=== PATIENT | male | born 1960 | race Caucasian/White ===

== ENCOUNTER 2017-05-17 18:02 | Observation (INO) | payer BC, SELFPAY | END 2017-05-18 17:35 | disposition home or self-care (01) | PROVIDERS: Admitting Provider Emergency Medicine; Emergency Provider Emergency Medicine; Family Provider Emergency Medicine; Visit Provider Emergency Medicine | DX: R07.9 Chest pain, unspecified (principal); I10 Essential (primary) hypertension | CPT/HCPCS: 36415; 71020; 78452; 80048; 80053; 82550; 82553; 83690; 83880; 84484; 85025; 93005; 93017; 93041; 93306; 93976; 99284; A9502; G0378; J2405 ==

== ENCOUNTER → 2017-08-06 14:10 | Outpatient (CLI) | payer BC, SELFPAY ==
[2017-08-06 14:31] LABS: Anion Gap 7.3 mEq/L (5-15); Blood Urea Nitrogen 14 mg/dL (7-18); Carbon Dioxide 32 mmol/L (21.0-32.0); Chloride 104 mmol/L (98-107); Creatinine,Serum 1.04 mg/dL (0.70-1.30); Estimated Glomerular Filt Rate 74 ml/min (>60); GFR (African American) 89 ML/MIN (>60); Glucose 73 mg/dL (74-106); Potassium 4.3 mmoL/L (3.5-5.1); Sodium 139 mmol/L (136-145)
== END ==
PROVIDERS: Visit Provider Physician Assistant
DX: F41.9 Anxiety disorder, unspecified (principal); K20.0 Eosinophilic esophagitis; I10 Essential (primary) hypertension; R60.9 Edema, unspecified
CPT/HCPCS: 36415; 80048

== ENCOUNTER → 2017-09-14 13:33 | Outpatient (POV) | payer BC, SELFPAY | PROVIDERS: Visit Provider Internal Medicine | DX: Z00.00 Encounter for general adult medical examination without abnormal findings (principal) ==

== ENCOUNTER 2020-06-02 18:30 | Emergency (ER) | payer BC, SELFPAY ==
--- NOTE | 2020-06-02 18:36 | XR_ITS ---
PROCEDURE: XR CHEST 2V CLINICAL HISTORY: pain between the shoulder blades Chest pain COMPARISON: CR CXR CHEST(2 VIEWS-NOT PORTABLE) from 07/04/2015 CR CXR CHEST(2 VIEWS-NOT PORTABLE) from 05/17/2017 CR CXR2V XR chest 2V from 05/14/2018 FINDINGS: The cardiomediastinal silhouette and pulmonary vascularity are within normal limits. The lungs are clear without infiltrates, suspicious nodules, or pleural effusions. Degenerative changes thoracic spine IMPRESSION: No acute findings. Dictated by: Santo Valle MD 06/03/2020 05:04 Santo Valle MD in OV 06/03/2020 05:04
[2020-06-02 18:50] VITALS: BP 153/93; PULSE 79; RESP 14; TEMP 37.3; O2SAT 98; BMI 35.9
--- NOTE | 2020-06-02 19:51 | HMH.EDUTC ---
[facility] [place] Disposition Clinical Impression: Muscle strain Disposition: Home, Self-Care Condition on Discharge: Good Instructions: Muscle Strain, DI for Muscle Strain Additional Instructions: apply ice 20 mins remove wait for skin to become room temp and then add heat for 20 mins follow up with pcp if no improvement Prescriptions: Cyclobenzaprine HCl [Cyclobenzaprine 10mg Tab*] 10 mg PO HSP PRN 10 Days #10 tab PRN Reason: Muscle Spasm Transmission Status: Pending to [facility] #[id number] Referrals: Irais Guardado APRN [Primary Care Provider] - Time of Disposition: 20:01 Medical Decision Making - Eduardo Inquiry Pt receiving controlled substance: No Vital Signs: 06/02/20 18:50 Temperature 99.1 F Temperature Source Oral Pulse Rate [Right Brachial] 79 Respiratory Rate 14 Blood Pressure [Right Arm] 153/93 H Blood Pressure Mean [Right Arm] 113 Blood Pressure Source [Right Arm] Automatic Cuff Blood Pressure Position [Right Arm] Sitting 02 Sat by Pulse Oximetry 98 Oxygen Delivery Method Room Air Orders (Tests/Meds): ORDERS Category Date Time Status Chest XR 2 view (NOT portable) [XR chest 2V] Stat Exams 06/02/20 18:36 Taken [facility] [place] HPI - General Chief complaint: Urgent Treatment Center Stated complaint: Back Pain between shoulder blades Time Seen by Provider: 06/02/20 19:45 Mode of Arrival: Ambulatory Source of Information: Patient Limitations: No Limitations Description of Symptoms (Recalled from Triage Doc. by RN): PATIENT C/O PAIN IN UPPER BACK X 2 WEEKS, WAS WORSE TODAY WHEN HE WOKE UP HEENT Symptoms (Recalled from RN notes): No Resp Symptoms (Recalled from RN notes): No Skin Symptoms (Recalled from RN notes): No MS Symptoms (Recalled from RN notes): No Functional Status (Recalled from RN notes): WNL - History of Present Illness Provider Complaint: 59 yr old male presents for rt side tspine pain for 2 weeks. Pt states he does remember going into the basement and feeling a catch in his back and is not sure if that caused pain but it has been getting worse. - Related Data Home Medications Medication Instructions Recorded Confirmed aspirin 81 mg tablet,delayed 81 mg PO DAILY 09/02/18 12/09/18 release lansoprazole 30 mg capsule,delayed 15 mg PO QDAY cap 12/09/18 12/09/18 release Previous Rx's Medication Instructions Recorded albuterol sulfate 90 mcg/actuation 1 puff INHALATION Q6H #6.7 g 12/09/18 aerosol inhaler hydrochlorothiazide 12.5 mg tablet 12.5 mg PO DAILY #90 tab 09/19/19 enalapril maleate 20 mg tablet 20 mg PO DAILY #90 tab 09/28/19 metoprolol succinate 50 mg 50 mg PO DAILY #90 tab 10/27/19 tablet,extended release 24 hr atorvastatin 20 mg tablet 20 mg PO DAILY #30 tab 11/13/19 azithromycin 250 mg tablet 250 mg PO QDAY 5 Days #6 tab 01/19/20 loratadine 10 mg tablet 10 mg PO QDAY #90 tab 01/31/20 amitriptyline 50 mg tablet See Rx Instructions .ROUTE 03/07/20 .COMPLEX #90 tab Cyclobenzaprine HCl 10 mg PO HSP PRN 10 Days #10 tab 06/02/20 [Cyclobenzaprine 10mg Tab*] Allergies Allergy/AdvReac Type Severity Reaction Status Date / Time levofloxacin [From LEVAQUIN] Allergy Unknown Verified 10/27/19 09:02 phenobarbital [PHENOBARBITAL] Allergy Unknown Verified 10/27/19 09:02 - Worker's Comp Is this a Worker's Comp case?: No [facility] History - Hepatitis A Screen Drug use history?: No High risk sexual behaviors?: No History of sexually transmitted infection?: No Currently employed?: No Childcare worker?: No Do you have indoor plumbing?: Yes Do you have electricity?: Yes Attestation statement:: This patient has been screened for Hepatitis A risk factors. I have reviewed the patient's past medical history: Yes Medical History: Reports:: Anxiety, Gastroesophageal Reflux Disease(GERD), Hypertension Other Medical History: Reports: Other Laterality Cases: Bilateral: Tonsillectomy Other Surgeries: Yes: Hernia Repair, Other (Back surgery x 2) Amputation
[2020-06-02 20:01] VITALS: BP 153/93; PULSE 79; RESP 14; TEMP 37.3; O2SAT 98
== END 2020-06-02 20:09 | disposition home or self-care (01) ==
PROVIDERS: Emergency Provider Nurse Practitioner Family; PCP Nurse Practitioner Family
DX: S29.012A Strain of muscle and tendon of back wall of thorax, initial encounter (principal); F41.9 Anxiety disorder, unspecified; I10 Essential (primary) hypertension; K21.9 Gastro-esophageal reflux disease without esophagitis; Z87.891 Personal history of nicotine dependence
CPT/HCPCS: 71046; 96372; 99202; G0463

== ENCOUNTER 2020-11-20 15:48 | Emergency (ER) | payer BC, SELFPAY ==
[2020-11-20 15:50] VITALS: BP 141/103; PULSE 76; RESP 21; TEMP 36.9; O2SAT 95; BMI 35.6
--- NOTE | 2020-11-20 16:03 | HMH.EDUTC ---
[facility] [place] Disposition Clinical Impression: Acute bronchitis Qualifiers: Bronchitis organism: unspecified organism Qualified Code(s): J20.9 - Acute bronchitis, unspecified Disposition: Home, Self-Care Condition on Discharge: Good Instructions: Acute Bronchitis, DI for Acute Bronchitis Additional Instructions: Drink plenty of fluids. Take tylenol or ibuprofen for pain or fever. Take the medications as directed. Follow up with your regular doctor. GO TO THE ER FOR ANY WORSENING SYMPTOMS Don't start the oral steroids until tomorrow, since you had the shot here today. Prescriptions: predniSONE [Prednisone 20mg Tab] 20 mg PO BID 4 Days #8 tab Transmission Status: Received by [employer] Information # Azithromycin [Z-Renaldo 250mg Tab*] 250 mg PO UD DOSE PK #6 tab Transmission Status: Received by [employer] Information # Referrals: Irais Guardado APRN [Primary Care Provider] - Forms: Work/School Release Time of Disposition: 16:52 Medical Decision Making - Medical Records Medical records reviewed: No: I reviewed the patient's medical records. - Eduardo Inquiry Pt receiving controlled substance: No Vital Signs: 11/20/20 15:50 11/20/20 16:45 Temperature 98.5 F 98.5 F Temperature Source Oral Pulse Rate 76 Pulse Rate [Right Brachial] 76 Respiratory Rate 21 21 Blood Pressure 141/103 H Blood Pressure [Right Arm] 141/103 H Blood Pressure Mean [Right Arm] 115 Blood Pressure Source [Right Arm] Automatic Cuff Blood Pressure Position [Right Arm] Sitting 02 Sat by Pulse Oximetry 95 Oxygen Delivery Method Room Air Orders (Tests/Meds): ED MEDICATIONS Discontinued Medications Generic Name Dose Route Start Last Admin Trade Name Freq PRN Reason Stop Dose Admin Ceftriaxone Sodium 1 gm 11/20/20 16:29 11/20/20 16:42 Ceftriaxone 1gm Vial IM 11/20/20 16:30 1 gm ONCE ONE Administration Protocol Lidocaine HCl 0 ml 11/20/20 16:29 11/20/20 16:42 Lidocaine 1% 5ml Pf Vial IM 11/20/20 16:30 2.1 ml ONCE ONE Administration Methylprednisolone Sodium Succinate 125 mg 11/20/20 16:29 11/20/20 16:42 Methylprednisolone Sod Succ 125mg Vial IM 11/20/20 16:30 125 mg ONCE ONE Administration Medical Decision Narrative: he refused a chest x-ray today. [facility] [place] HPI - General Stated complaint: congestion cough drainage Time Seen by Provider: 11/20/20 16:03 - History of Present Illness Provider Complaint: He states that for the past 1 week he has had sinus congestion and chest congestion. He has been coughing a lot. He coughs worse at night after he lies down. He denies any fever or chills. - Related Data Home Medications Medication Instructions Recorded Confirmed aspirin 81 mg tablet,delayed 81 mg PO DAILY 09/02/18 10/25/20 release lansoprazole 30 mg capsule,delayed 15 mg PO QDAY cap 12/09/18 10/25/20 release fluticasone furoate 100 1 inh INHALATION DAILY each 10/25/20 10/25/20 mcg/actuation blister powder for inhalation imiquimod 5 % topical cream packet 1 applic TOPICAL ONCE each 10/25/20 10/25/20 Previous Rx's Medication Instructions Recorded albuterol sulfate 90 mcg/actuation 1 puff INHALATION Q6H #6.7 g 12/09/18 aerosol inhaler loratadine 10 mg tablet 10 mg PO QDAY #90 tab 01/31/20 amitriptyline 50 mg tablet See Rx Instructions .ROUTE 08/19/20 .COMPLEX #90 tab enalapril maleate 20 mg tablet 20 mg PO DAILY #90 tab 10/25/20 hydrochlorothiazide 12.5 mg tablet 12.5 mg PO DAILY #90 tab 10/25/20 metoprolol succinate 50 mg 50 mg PO DAILY #90 tab 10/25/20 tablet,extended release 24 hr Azithromycin [Z-Renaldo 250mg Tab*] 250 mg PO UD DOSE PK #6 tab 11/20/20 predniSONE [Prednisone 20mg 20 mg PO BID 4 Days #8 tab 11/20/20 Tab] Allergies Allergy/AdvReac Type Severity Reaction Status Date / Time levofloxacin [From LEVAQUIN] Allergy Unknown Verified 10/25/20 08:52 phenobarbital [PHENOBARBITAL] Allergy Unknown Verified
[2020-11-20 16:45] VITALS: BP 141/103; PULSE 76; RESP 21; TEMP 36.9; O2SAT 95
== END 2020-11-20 17:00 | disposition home or self-care (01) ==
PROVIDERS: Emergency Provider Nurse Practitioner Family; PCP Nurse Practitioner Family
DX: J20.9 Acute bronchitis, unspecified (principal); K21.9 Gastro-esophageal reflux disease without esophagitis; I10 Essential (primary) hypertension; Z87.891 Personal history of nicotine dependence; Z79.899 Other long term (current) drug therapy
CPT/HCPCS: 96372; 99202; G0463

== ENCOUNTER → 2021-02-17 18:21 | Outpatient (CLI) | payer BC, SELFPAY | PROVIDERS: Visit Provider Surgery | DX: Z01.812 Encounter for preprocedural laboratory examination (principal); Z20.822 Contact with and (suspected) exposure to COVID-19; U07.1 COVID-19; R13.10 Dysphagia, unspecified | CPT/HCPCS: C9803; U0003; U0005 ==

== ENCOUNTER 2021-04-02 10:40 | Day surgery (SDC) | payer BC, SELFPAY ==
[2021-03-31 14:17] VITALS: BMI 34.8
[2021-04-02] VITALS (7 sets, daily range): BP systolic 100–140; BP diastolic 56–72; PULSE 56–67; RESP 16–18; TEMP 36.1–36.5; O2SAT 91–100
--- NOTE | 2021-04-02 11:14 | HMH.GSHP ---
HPI HPI: Patient is a 60-year-old male whom I had seen in the past. On 02/04/2016 I had performed upper endoscopy for symptoms of dysphagia. He did have an upper GI series which revealed some indentation from bone spurs in the cervical esophagus, Schatzki's ring, and hiatal hernia prior to endoscopy. There was no evidence of any Schatzki's ring. Biopsies at that time revealed eosinophilic esophagitis. He does see an paper bag maker. He has been prescribed lansoprazole and recently the dosing has been decreased to 15 mg. This does give him good relief. He rarely does have some symptoms of cervical dysphagia often occurring in the morning with bread type foods. He has an uncle that had esophageal cancer. Plan was for follow-up upper endoscopy to assess for mechanical etiology for the occasional dysphagia and to assess eosinophilic esophagitis. [facility] History I have reviewed the patient's past medical history: Yes Medical History: Reports:: Anxiety, Gastroesophageal Reflux Disease(GERD), Hypertension Denies:: Cancer, Diabetes Mellitus Type 1, Diabetes Mellitus Type 2, Internal Pacemaker, MRSA, Seizures *Have you ever received a pneumonia vaccine?: No *Have you received a flu vaccine this season?: No Other Medical History: Reports: Other Laterality Cases: Bilateral: Tonsillectomy Other Surgeries: Yes: Cancer Surgery, Colonoscopy, Hernia Repair, Other. No: Pacemaker Amputation: No Fractures: Yes - *Social History Last grade of school completed: High school graduate Smoking Status: Never smoker Alcohol Intake: never Alcohol Intake Frequency:: other Substance Use Type: marijuana Last Used Substance: unknown *Occupational Status:: employed Housing: house Household Members: spouse *Travel in the last 8 weeks: Inside the [facility] - Psychiatric History Pschychiatric History:: Reports:: Anxiety Family Hx:: Cancer Review of Systems - Review of Systems Review of systems:: pertinent systems reviewed and negative unless documented below Meds Home Medications Medication Instructions Recorded Confirmed Type aspirin 81 mg tablet,delayed 81 mg PO DAILY 09/02/18 04/02/21 History release fluticasone furoate 100 1 inh INHALATION DAILY each 10/25/20 04/02/21 History mcg/actuation blister powder for inhalation Albuterol Sulfate [Ventolin HFA] 1 puff INHALATION Q6H 03/31/21 04/02/21 History Amitriptyline HCl [Elavil 50mg 50 mg PO DAILY 03/31/21 04/02/21 History tablet] Enalapril Maleate 20 mg PO DAILY 03/31/21 04/02/21 History Lansoprazole 15 mg PO QDAY 03/31/21 04/02/21 History Loratadine [Allergy Relief] 10 mg PO QDAY 03/31/21 04/02/21 History Metoprolol Succinate [Metoprolol 50 mg PO DAILY 03/31/21 04/02/21 History Succinate 50mg Tablet*] hydroCHLOROthiazide 12.5 mg PO DAILY 03/31/21 04/02/21 History [Hydrochlorothiazide 12.5mg Tab] Allergies Allergy/AdvReac Type Severity Reaction Status Date / Time levofloxacin [From LEVAQUIN] Allergy Unknown Verified 04/02/21 10:59 phenobarbital [PHENOBARBITAL] Allergy Unknown Verified 04/02/21 10:59 Exam Vital signs and Labs for Last 24 Hours: Temp Pulse Resp BP Pulse Ox 97.7 F 63 18 140/71 98 04/02/21 11:00 04/02/21 11:00 04/02/21 11:00 04/02/21 11:00 04/02/21 11:00 I & O for Last 24 hours: Intake & Output 03/30/21 03/31/21 04/01/21 04/02/21 11:59 11:59 11:59 11:59 Weight 250 lb - Constitutional no acute distress - *Routine HEENT Exam Head: Present: normocephalic Eye: Present: EOMI, PERRL ENT: Present: mucous membranes moist - *Routine Neck Exam Present: supple. Absent: lymphadenopathy - *Routine Respiratory Exam Present: CTA bilaterally - *Routine Cardiovascular Exam Present: RRR - *Routine Abdominal Exam Present: soft, normoactive bowel sounds. Absent: tenderness - *Routine Rectal Exam Rectal:: deferred - *Routine Genitalia Exam Genitalia:: deferred - *Routine Extremities Exam Absent: cyanosis, cl
--- NOTE | 2021-04-02 11:28 | P.PN_ITS ---
[facility] Anesthesia Checklist - Patient Identification Patient Identification: Arm Band - Structural Data Admitted From: Home Planned Operative Procedure/s: EGD Consent for Planned Operative Procedure(s) Verified: Yes - NPO Status Verified Time NPO: 00:00 - Airway Assessment C-Spine Mobility Assessed: Yes TMJ Mobility Assessed: Yes Dentition: Good Dentition - Neurological Assessment Level of Consciousness: Awake Hx Seizures: No Numbness or tingling in extremities: No - Anesthesia Plan Anesthesia Risk discussed: Yes Anesthesia Plan: Verified ASA Class: II Anesthesia Type: MAC [facility] History I have reviewed the patient's past medical history: Yes Medical History: Reports:: Anxiety, Gastroesophageal Reflux Disease(GERD), Hypertension Denies:: Cancer, Diabetes Mellitus Type 1, Diabetes Mellitus Type 2, Internal Pacemaker, MRSA, Seizures *Have you ever received a pneumonia vaccine?: No *Have you received a flu vaccine this season?: No Other Medical History: Reports: Other Anesthesia experience/problems:: None Laterality Cases: Bilateral: Tonsillectomy Other Surgeries: Yes: Cancer Surgery, Colonoscopy, Hernia Repair, Other. No: Pacemaker Amputation: No Fractures: Yes - *Social History Last grade of school completed: High school graduate Smoking Status: Never smoker Alcohol Intake: never Alcohol Intake Frequency:: other Substance Use Type: marijuana Last Used Substance: unknown *Occupational Status:: employed Housing: house Household Members: spouse *Travel in the last 8 weeks: Inside the [place] - Psychiatric History Pschychiatric History:: Reports:: Anxiety Family Hx:: Cancer
--- NOTE | 2021-04-02 11:32 | HMH.SCOPE ---
- Procedure: Date: 04/02/21 Patient Date of :: 1960 Procedure Performed:: Esophagogastroduodenoscopy with biopsies Indications:: Patient is a 60-year-old male whom I had seen in the past. On 02/04/2016 I had performed upper endoscopy for symptoms of dysphagia. He did have an upper GI series which revealed some indentation from bone spurs in the cervical esophagus, Schatzki's ring, and hiatal hernia prior to endoscopy. There was no evidence of any Schatzki's ring. Biopsies at that time revealed eosinophilic esophagitis. He does see an rotary engine assembler. He has been prescribed lansoprazole and recently the dosing has been decreased to 15 mg. This does give him good relief. He rarely does have some symptoms of cervical dysphagia often occurring in the morning with bread type foods. He has an uncle that had esophageal cancer. In order to continue prescribing low-dose proton pump inhibitors his rotary engine assembler advised that he undergo a follow-up upper endoscopy. Plan was for follow-up upper endoscopy to assess for mechanical etiology for the occasional dysphagia and to assess eosinophilic esophagitis. Performing Provider:: Roberto Olmedo MD Referring Provider:: MD Irais Carrington Sedation:: MAC sedation Procedure:: Patient was taken to endoscopy procedure room. He was positioned in a lateral decubitus position. Adequate intravenous sedation was achieved with anesthesia titration of propofol. Olympus endoscope was inserted via the oropharynx. Esophagus was cannulated. Overall esophagus appeared unremarkable. Gastroesophageal junction was encountered at approximately 45 cm from the incisors. Stomach was cannulated and insufflated. Retroflexion revealed no evidence of any appreciable hiatal hernia. Gastric antral mucosal biopsies obtained for CLOtest for H. pylori. Pylorus was traversed. Duodenal bulb and duodenal sweep appeared unremarkable although there was some chyle present. Endoscope was withdrawn to the gastroesophageal junction where a biopsy was obtained. Several biopsies were obtained randomly in the distal esophagus. Stomach was desufflated and the endoscope was withdrawn. Findings:: Unremarkable appearing upper endoscopy Gastroesophageal junction 45 cm from the incisors Recommendations:: Continue low-dose proton pump inhibitors. Treat H. pylori if positive. Complications:: None immediately apparent Estimated blood obtained (mL): 2
== END 2021-04-02 12:24 | disposition home or self-care (01) ==
LOC: OUTP 10:43
PROVIDERS: PCP Nurse Practitioner Family; Visit Provider Surgery
PROC: 0DJ08ZZ Inspection of Upper Intestinal Tract, Via Natural or Artificial Opening Endoscopic (ICD-10-PCS; CPT 43235; principal; 2021-04-02 11:00)
DX: Z87.19 Personal history of other diseases of the digestive system (principal); R13.10 Dysphagia, unspecified; F41.9 Anxiety disorder, unspecified; I10 Essential (primary) hypertension; Z80.9 Family history of malignant neoplasm, unspecified; Z88.1 Allergy status to other antibiotic agents; Z79.82 Long term (current) use of aspirin; Z79.899 Other long term (current) drug therapy
CPT/HCPCS: 43239; 87339; J2704

== ENCOUNTER → 2021-10-16 09:09 | Outpatient (CLI) | payer BC, SELFPAY ==
[2021-10-16 09:31] LABS: Basophils # 0.1 K/mm3 (0-0.2); Basophils % 2.4 % (0.1-2.0); Eosinophils # 0.4 K/mm3 (0.0-0.4); Eosinophils % 7.3 % (0.1-12.0); Hematocrit 43.8 % (42.0-52.0); Hemoglobin 15.2 g/dL (14.1-18.0); Lymphocytes # 1.8 K/mm3 (0.7-4.5); Mean Corpuscular HGB Conc 34.6 g/dL (31.8-35.4); Mean Corpuscular Hemoglobin 31.8 pg (27.0-31.2); Mean Corpuscular Volume 91.8 fl (80-94); Mean Platelet Volume 7.8 fl (7.4-10.4); Monocytes # 0.4 K/mm3 (0.1-1.0); Monocytes % 8.2 % (1.7-9.3); Neutrophils # 2.2 K/mm3 (1.8-7.8); Neutrophils % 45.2 % (37.0-80.0); Platelet Count 236 K/mm3 (142-424); Red Blood Count 4.77 M/mm3 (4.60-6.20); Red Cell Distribution Width 12.8 % (11.5-17.5); White Blood Count 4.8 K/mm3 (4.8-10.8)
[2021-10-16 09:53] LABS: Chloride 104 mmol/L (98-107)
[2021-10-16 09:54] LABS: Potassium 4.8 mmoL/L (3.5-5.1); Sodium 139 mmol/L (136-145)
[2021-10-16 09:56] LABS: Alanine Aminotransferase 22 U/L (12-78); Albumin Level 3.9 g/dl (3.5-5.0); Alkaline Phosphatase 75 U/L (38-126); Anion Gap 8.8 mEq/L (5-15); Aspartate Amino Transferase 25 U/L (17-59); Bilirubin,Indirect 0.6 mg/dL (0.0-0.9); Bilirubin,Total 0.6 mg/dl (0.2-1.3); Bilirubin,Unconjugated 0.5 mg/dL (0.0-1.1); Blood Urea Nitrogen 13 mg/dl (9-20); Carbon Dioxide 31 mmol/L (22.0-30.0); Cholesterol 159 mg/dl (140-200); Estimated Glomerular Filt Rate 86 ml/min (>60); GFR (African American) 103 ML/MIN (>60); Total Protein,Serum 6.6 g/dl (6.3-8.2); Triglycerides 82 mg/dl (30-150); VLDL Cholesterol 16 mg/dL (0-40)
[2021-10-16 09:57] LABS: Calcium 9.2 mg/dl (8.4-10.2); Chol/HDL Ratio 5.3 (1-3.5); Glucose 105 mg/dl (74-100); HDL Cholesterol 30 mg/dl (40-60)
[2021-10-16 10:08] LABS: Direct LDL Cholesterol 106.02 mg/dL (100-129)
[2021-10-16 10:14] LABS: Free T4 (Free Thyroxine) 0.95 ng/dl (0.78-2.19)
[2021-10-16 10:28] LABS: Thyroid Stimulating Hormone 3.54 uIU/mL (0.465-4.68)
== END ==
PROVIDERS: Visit Provider Nurse Practitioner Family
DX: I10 Essential (primary) hypertension (principal); E78.5 Hyperlipidemia, unspecified; Z79.899 Other long term (current) drug therapy
CPT/HCPCS: 36415; 80048; 80061; 80076; 84439; 84443; 85025

== ENCOUNTER → 2021-10-24 13:26 | Outpatient (CLI) | payer SELFPAY ==
--- NOTE | 2021-10-24 13:33 | CT_ITS ---
FINAL REPORT CLINICAL HISTORY: chest pain. eval coronaries FINDINGS: CT CORONARY CALCIUM SCORE W/O TECHNIQUE: Thin-section axial images were obtained through the heart and coronary arteries per CT coronary calcium score protocol. This study was performed with techniques to keep radiation doses as low as reasonably achievable (ALARA). Individualized dose reduction techniques using automated exposure control or adjustment of mA and/or kV according to the patient's size were employed. FINDINGS: On the axial images, there is no visible calcification. This gives a coronary artery calcium score of 0 based on the Agatston scale. This coronary artery calcium score places the patient within the 0 percentile based on age and gender. The heart size is normal. There is no mediastinal mass or adenopathy. There is no pleural or pericardial effusion. Limited evaluation of the lungs reveal several small nodules at the left major fissure which may represent intra fissural lymph nodes. IMPRESSION: Coronary artery calcium score of 0 based on the Agatston scale. Reviewed, Interpreted and Dictated by Roberto Georges III, MD Transcribed by Bibi Swanson Authenticated and [facility]
== END ==
PROVIDERS: PCP Nurse Practitioner Family; Visit Provider Internal Medicine Cardiovascular Disease
DX: I10 Essential (primary) hypertension (principal); E78.5 Hyperlipidemia, unspecified
CPT/HCPCS: 75571

== ENCOUNTER 2022-03-09 13:25 | Emergency (ER) | payer BC, OTHER, SELFPAY ==
[2022-03-09 14:05] VITALS: BP 130/78; PULSE 70; RESP 18; TEMP 36.8; O2SAT 97; BMI 36.1
[2022-03-09 14:27] LABS: UTC Strep Screen (Rapid) Negative (Negative)
--- NOTE | 2022-03-09 14:42 | EXP.UTC ---
Discharge Plan Disposition Patient Disposition: Home, Self-Care Condition: Good Prescriptions Prescriptions: New amoxicillin 875 mg tablet 875 mg PO BID Qty: 20 0RF No Action fluticasone furoate 100 mcg/actuation blister with device 1 inh INHALATION DAILY aspirin [Adult Low Dose Aspirin] 81 mg tablet,delayed release (DR/EC) 81 mg PO DAILY sildenafil (pulm.hypertension) 20 mg tablet See Rx Instructions .ROUTE .COMPLEX Qty: 30 4RF Dose Instruction: TAKE 1-5 TABLETS BY MOUTH EVERY DAY Rx Instructions: TAKE 1-5 TABLETS BY MOUTH EVERY DAY amitriptyline 50 mg tablet See Rx Instructions .ROUTE .COMPLEX Qty: 90 3RF Dose Instruction: TAKE 1 TABLET DAILY Rx Instructions: TAKE 1 TABLET DAILY loratadine 10 mg tablet 10 mg PO DAILY Qty: 90 0RF metoprolol succinate 50 mg tablet extended release 24 hr See Rx Instructions .ROUTE .COMPLEX Qty: 90 1RF Dose Instruction: TAKE 1 TABLET DAILY Rx Instructions: TAKE 1 TABLET DAILY enalapril maleate 20 mg tablet See Rx Instructions .ROUTE .COMPLEX Qty: 90 3RF Dose Instruction: TAKE 1 TABLET DAILY Rx Instructions: TAKE 1 TABLET DAILY hydrochlorothiazide 12.5 mg tablet See Rx Instructions .ROUTE .COMPLEX Qty: 90 3RF Dose Instruction: TAKE 1 TABLET ONCE DAILY Rx Instructions: TAKE 1 TABLET ONCE DAILY albuterol sulfate 90 mcg/actuation HFA aerosol inhaler 1 puff INHALATION Q6H PRN (Reason: allergies) Rx Instructions: administer with spacer Referrals Follow up/Referrals: Irais Guardado APRN [Primary Care Provider] - See instructions Activity Restrictions/Add. Instructions Additional Instructions/Restrictions: *Monitor Temp, Over the counter Motrin or Tylenol as directed/as needed Tylenol every 4 hours and Motrin every 6 hours (as long as your family doctor has told you that you can take it) for fever or pain. and straight to ER if unable to lower temp less than 101.0 after medication given *Warm salt water gargles may help to soothe the throat *Throat Lozenges? *Warm fluids like tea with honey may help to soothe the throat? *Sleep elevated *Humidifier/Vaporizer Your throat swab was sent for culture. Those results are typically sent to your primary care. Be sure to follow up in 2-3 days with your family doctor/primary care physician if no improvement so they can review those result and treat if necessary. If you don?t have a primary care doctor, I recommend you get one but in the mean time, you will have to return to a walk in clinic Follow up IMMEDIATELY for new or worsening symptoms or no Noticeable improvement over the next 48-72 hours. 911 for difficulty breathing or swallowing Clinical Impressions Clinical Impression: Otitis media Qualifiers: Otitis media type: unspecified Laterality: bilateral Qualified Code(s): H66.93 - Otitis media, unspecified, bilateral Instructions Patient Instructions: Ear Infections (Alternative Therapy), Middle Ear Infection Discharge ED Provider: Kimberli Abreu [facility] General Stated complaint: Sore throat, tightness in ears Mode of Arrival: Ambulatory Source of Information: Patient Limitations: No Limitations Time Seen by Provider: 03/09/22 14:42 Description of Symptoms (Recalled from Triage Doc. by RN): PATIENT C/O SORE THROAT AND TIGHTNESS IN EARS X 3 DAYS HEENT Symptoms (Recalled from RN notes): Yes Resp Symptoms (Recalled from RN notes): No Skin Symptoms (Recalled from RN notes): No MS Symptoms (Recalled from RN notes): No Functional Status (Recalled from RN notes): WNL History of Present Illness Provider Complaint: Patient states that he has been having tight pressure like feeling in both ears and sore throat that has continued to get worse States it has been worse the last 3 days so today he came in to get it checked out Related Data Home Medications Medication Instructions Recorde
[2022-03-09 15:01] VITALS: BP 130/78; PULSE 70; RESP 18; TEMP 36.8; O2SAT 97
== END 2022-03-09 15:03 | disposition home or self-care (01) ==
PROVIDERS: Emergency Provider Nurse Practitioner; PCP Nurse Practitioner Family
DX: H66.93 Otitis media, unspecified, bilateral (principal); J02.9 Acute pharyngitis, unspecified; I10 Essential (primary) hypertension; Z79.51 Long term (current) use of inhaled steroids; Z79.82 Long term (current) use of aspirin; Z79.899 Other long term (current) drug therapy; Z88.8 Allergy status to other drugs, medicaments and biological substances
CPT/HCPCS: 87880; 96372; 99213; G0463

== ENCOUNTER → 2022-12-10 11:39 | Outpatient (CLI) | payer BC, SELFPAY ==
--- NOTE | 2022-12-10 11:47 | XR_ITS ---
FINAL REPORT CLINICAL HISTORY: PARATHESIA OF SKIN FINDINGS: CERVICAL SPINE Three views demonstrate no acute fracture. There is mild and moderate degenerative change with osteophytes greatest at C6-7. There is no malalignment. IMPRESSION: Mild and moderate degenerative change with osteophytes greatest at C6-7. Reviewed, Interpreted and Dictated by Roberto Georges III, MD Transcribed by Everette Harrison Authenticated and [facility]
--- NOTE | 2022-12-10 11:47 | XR_ITS ---
FINAL REPORT CLINICAL HISTORY: PARASTHESIA OF SKIN FINDINGS: THORACIC SPINE Two views demonstrate no acute fracture. There is moderate degenerative change with osteophytes. There is mild leftward curvature, but alignment is otherwise stable. IMPRESSION: Moderate degenerative change with osteophytes. Reviewed, Interpreted and Dictated by Roberto Georges III, MD Transcribed by Everette Harrison Authenticated and [facility]
== END ==
PROVIDERS: PCP Nurse Practitioner Family; Visit Provider Nurse Practitioner Family
DX: M54.2 Cervicalgia (principal); M54.6 Pain in thoracic spine; R20.2 Paresthesia of skin
CPT/HCPCS: 72040; 72070

== ENCOUNTER → 2022-12-22 09:14 | Outpatient (CLI) | payer BC, OTHER, SELFPAY ==
--- NOTE | 2022-12-22 09:25 | MR_ITS ---
FINAL REPORT TECHNIQUE: Multiplanar MR without gadolinium enhancement CLINICAL HISTORY: NECK PAIN swelling left arm felt pop between scapula x 9 months ago left arm pain , tingling and numbness headache COMPARISON: None FINDINGS: Limited images of the posterior fossa are unremarkable. Alignment is normal. Cervical spinal cord reveals abnormal increased T2 signal in the dorsal cord primarily on the left side at the C5-6 level. This is most consistent in appearance with a small area of myelomalacia, less likely neoplasm or demyelination. C2-3: Mild annular bulge with moderate left neural foraminal narrowing. C3-4: Bilateral facet osteoarthropathy and mild annular bulge, with moderate to severe bilateral neural foraminal narrowing. C4-5: Mild annular bulge with facet osteoarthropathy and moderate bilateral neural foraminal narrowing. C5-6: Moderate disc bulge covered by osteophyte, with a moderate right paracentral disc osteophyte complex and canal stenosis greater on the right side with mild right cord compression. There is severe left and moderate right neural foraminal narrowing. C6-7: Moderate annular bulge asymmetric to the right with moderate right canal stenosis and severe bilateral neural foraminal narrowing. C7-T1: Minimal annular bulge. IMPRESSION: Multilevel degenerative change most pronounced at the C5-6 and C6-7 level. Abnormal signal in the spinal cord dorsally, paracentral to the left, at the C5-6 level compatible with a small area of myelomalacia, less likely neoplasm or demyelination. Reviewed, Interpreted and Dictated by Brent Crouch MD Transcribed by Zeina Jaimes Authenticated and [facility]
== END ==
PROVIDERS: PCP Nurse Practitioner Family; Visit Provider Nurse Practitioner Family
DX: M54.2 Cervicalgia (principal)
CPT/HCPCS: 72141; 76376

== ENCOUNTER → 2023-05-17 10:16 | Outpatient (CLI) | payer BC, SELFPAY ==
[2023-05-17 11:39] LABS: Hemoglobin A1C 5.4 % (4.0-6.0)
[2023-05-17 12:12] LABS: Anion Gap 9.3 mEq/L (5-15); Blood Urea Nitrogen 16 mg/dl (9-20); Calcium 8.8 mg/dl (8.4-10.2); Carbon Dioxide 31 mmol/L (22.0-30.0); Chloride 101 mmol/L (98-107); Estimated Glomerular Filt Rate 85 ml/min (>60); GFR (African American) 103 ML/MIN (>60); Glucose 88 mg/dl (74-100); Potassium 4.3 mmoL/L (3.5-5.1); Sodium 137 mmol/L (136-145)
== END ==
PROVIDERS: PCP Nurse Practitioner Family; Visit Provider Physician Assistant
DX: I10 Essential (primary) hypertension (principal); R73.03 Prediabetes; E66.9 Obesity, unspecified; Z68.36 Body mass index [BMI] 36.0-36.9, adult
CPT/HCPCS: 36415; 80048; 83036

== ENCOUNTER → 2023-05-25 11:20 | Outpatient (CLI) | payer BC, SELFPAY ==
--- NOTE | 2023-05-25 11:25 | XR_ITS ---
FINAL REPORT CLINICAL HISTORY: LOW BACK PAIN COMPARISON: None FINDINGS: LUMBOSACRAL SPINE SERIES Five views of the lumbosacral spine were obtained. There is no fracture present. There is no malalignment. Vertebrae are normal in height. There is lumbar scoliosis convex to the right measuring about 15 degrees. There are advanced changes of degenerative disc disease from L2-3 through L5-S1. IMPRESSION: Degenerative changes without acute process. Reviewed, Interpreted and Dictated by Karlos Rosenthal MD Transcribed by Rosie Newberry Authenticated and [facility]
== END ==
PROVIDERS: PCP Nurse Practitioner Family; Visit Provider Nurse Practitioner Family
DX: M54.50 Low back pain, unspecified (principal)
CPT/HCPCS: 72110

== ENCOUNTER 2023-11-29 10:12 | Outpatient (CLI) | payer BC, SELFPAY ==
[2023-11-29 10:57] LABS: Basophils % 0.8 % (0.1-2.0); Eosinophils # 0.3 K/mm3 (0.0-0.4); Eosinophils % 5.3 % (0.1-12.0); Hematocrit 42.9 % (42.0-52.0); Hemoglobin 14.8 g/dL (14.1-18.0); Lymphocytes # 1.7 K/mm3 (0.7-4.5); Lymphocytes % 32.9 % (10-50); Mean Corpuscular HGB Conc 34.4 g/dL (31.8-35.4); Mean Corpuscular Hemoglobin 31.9 pg (27.0-31.2); Mean Corpuscular Volume 92.7 fl (80-94); Mean Platelet Volume 7.7 fl (7.4-10.4); Monocytes # 0.4 K/mm3 (0.1-1.0); Monocytes % 7.6 % (1.7-9.3); Neutrophils # 2.7 K/mm3 (1.8-7.8); Neutrophils % 53.3 % (37.0-80.0); Platelet Count 236 K/mm3 (142-424); Red Blood Count 4.63 M/mm3 (4.60-6.20); Red Cell Distribution Width 13.3 % (11.5-17.5); White Blood Count 5.1 K/mm3 (4.8-10.8)
[2023-11-29 11:20] LABS: Monoscreen (Rapid) Negative (Negative)
[2023-11-29 11:29] LABS: Alanine Aminotransferase 20 U/L (12-78); Albumin Level 4.1 g/dl (3.5-5.0); Albumin/Globulin Ratio 1.5 (1.1-1.8); Alkaline Phosphatase 89 U/L (38-126); Aspartate Amino Transferase 22 U/L (17-59); Bilirubin,Total 0.7 mg/dl (0.2-1.3); Blood Urea Nitrogen 19 mg/dl (9-20); Calcium 9.1 mg/dl (8.4-10.2); Carbon Dioxide 28 mmol/L (22.0-30.0); Chloride 102 mmol/L (98-107); Cholesterol 163 mg/dl (140-200); Estimated Glomerular Filt Rate 85 ml/min (>60); GFR (African American) 103 ML/MIN (>60); Globulin 2.8 g/dL (1.3-3.2); Glucose 93 mg/dl (74-100); HDL Cholesterol 27 mg/dl (40-60); Sodium 137 mmol/L (136-145); Total Protein,Serum 6.9 g/dl (6.3-8.2); Triglycerides 126 mg/dl (30-150); VLDL Cholesterol 25 mg/dL (0-40)
[2023-11-29 11:40] LABS: Direct LDL Cholesterol 101.75 mg/dL (100-129)
[2023-11-29 14:17] LABS: Hemoglobin A1C 5.3 % (4.0-6.0)
[2023-11-30 14:12] LABS: EBV Ab VCA, IgM <36.0 U/mL (0.0-35.9)
== END 2023-11-29 23:59 | disposition home or self-care (01) ==
LOC: LAB 10:14
PROVIDERS: PCP Nurse Practitioner Family; Visit Provider Nurse Practitioner Family
DX: E16.2 Hypoglycemia, unspecified (principal); I10 Essential (primary) hypertension; R59.0 Localized enlarged lymph nodes; R53.83 Other fatigue
CPT/HCPCS: 36415; 80050; 80053; 80061; 82306; 83036; 84439; 84443; 85025; 86318; 86665

== ENCOUNTER 2024-12-14 06:46 | Outpatient (CLI) | payer MEDICARE, SELFPAY ==
--- NOTE | 2024-12-14 | CA_ITS ---
APPROVED REPORT Exam: Pharmacologic Technologist: Rosie Rodriguez Ht: 5 ft 5 in Wt: 258 lbs BSA: 2.20 m2 HR: 56 bpm BP: 128/80 mmHg Rhythm: NSR Medical History Cardiac Risk Factors: HTN Stress Test Details HR Resting HR: 56 bpm Max Heart Rate (APMHR): 155.187237 bpm Target HR (85% APMHR): 131.057755 bpm Recovery HR: 62 bpm BP Resting BP: 128.0/80.0 mmHg Recovery BP: 131.0/76.0 mmHg ECG Resting ECG: NSR Stress ECG Conclusion During lexiscan pt experinced no symptoms. No arrhythmias noted. <1.5mm ST segment changes. Non diagnostic lexiscan stress. Electronically signed by : Debo Leonard MD 12/16/2024 15:35:43
--- OUTSIDE RECORDS SUMMARY | 2024-12-14 06:49 | XMS_ITS | Data Portability ---
Author Organization [facility] ROSS RobersonS [facility] CLOSED Address [address] [facility] [facility] [address] [place] [address] Care Team Providers Care Chinese Language Professor Name Role Phone CARMEN HUBER Primary Care Provider [phone] CARMEN HUBER Referring Provider [phone] JESUS MANUEL MAURICE Neurosurgeon VALENTINE JONES Phys. Med. & Rehab Assessment Encounter Date Assessment Date Assessment LastModified by Organization Details LastModified Time 01/05/2024 01/05/2024 This is a 63-year-old gentleman seen today for follow up evaluation and treatment of low back pain after recent left L5-S1 and S1 TFESI that provided good relief of Low back and hips. Shooting pain in the left heel while sitting is ongoing. this remains his primary complaint, though somewhat improved it is exacerbated by sitting. Normal neurologic exam aside from right L3 dysesthesia. PMH: PSHx: C5-7 ACDF, lumbar surgery x 2 1. X-ray flexion-extension lumbar spine 08/09/2023 demonstrates severe multilevel degenerative changes without instability. 2. MRI lumbar spine 05/28/2023 demonstrates type II Modic endplate changes at L2-3, L3-4, L4-5, and L5-S1. Severe multilevel foraminal narrowing is present throughout the lumbar spine. No significant central canal stenosis. The above image findings were discussed with the patient. Previous injection therapy has included: 11/05/2023 for left L5-S1 and S1 TFESI with 50% ongoing Ibuprofen as needed Patient has participated in a physician directed home exercise program for at least 6 weeks in the last 6 months Presentation is consistent with left S1 radiculopathy. I recommend: 1. Left L5-S1 and S1 TFESI on or after 02/05/2024 as needed 2. Should his low back pain become unmanageable consider facet workup versus Intracept 3. I recommend the patient engage in a core exercise plan such as yoga or pilates on a fpc basis. I had an in-depth discussion with the patient regarding the risks of the procedure including bleeding, infection, damage to surrounding structures, paralysis and even . We discussed the potential adverse effects of corticosteroid injection including flushing of the face, lipodystrophy, skin discoloration, elevated blood glucose, increased blood pressure. Risks of frequent steroid administration include weight gain, hormonal changes, mood changes, osteoporosis. External records were reviewed and discussed as above, including imaging, clinical notes, and relevant labs. [email or web address] Not available 01/05/2024 11:24:06 01/19/2024 01/19/2024 Mr. Hernadez is a 63-year-old male who status post C5-6 and C6-[address] Levi in 02/2023 with delayed anterior cervical hematoma formation ~1 week post-op, status post evacuation by myself in 03/2023, who is now presenting for evaluation of chronic lumbar pain with scattered bilateral lower extremity symptoms. He certainly has diffuse degenerative changes throughout his lumbar spine with scattered regions of foraminal stenosis, but it is difficult to clearly discern which if any of his lumbar levels are leading to his symptoms. He did see some improvement in his hip pain with a left L5/S1 TFESI. I do not see a clear finding that would explain his worsening impotence or his episode of left perineal numbness. I believe additional workup is necessary. I would like for him to acquire scoliosis x-rays to have a full evaluation of his alignment. I would like to acquire a CT of his thoracic and lumbar spine to better assess his bony anatomy and the degree of bony foraminal stenosis that may be present. It has been 8 months since his last MRI lumbar spine and I believe it is prudent to update this to assess for any interval changes. I would also like to acquire a MRI of his thoracic spine at the same time given his prominent groin complaints that are not readily explained by his MRI lumbar spine findings. He also seems to have a claudicant component to his presentation and there is not significant central canal stenosis that would explain this. His lower extremity pulses were not readily identifiable and I would like for him to go undergo an ANKUR to assess for any vascular component to his current complaints, especially given his history of hypertension and his complaint of progressive impotence. We will also acquire a bilateral lower extremity EMG/NCS to assess for radiculopathy versus neuropathy or potential peripheral entrapment. We will trial Mobic and gabapentin to see if this can improve any of his symptoms. We will plan to see him back in 6 weeks to review these studies. [email or web address] Not available 01/19/2024 15:56:43 03/29/2024 03/29/2024 ASSESSMENT: Mr. Hernadez is a 63-year-old male who is status post C5-6 and C6-[address] Levi in 02/2023 with delayed anterior cervical hematoma formation ~1 week post-op, status post evacuation by Dr. Maurice in 03/2023, who was last seen on 01/19/2024 for evaluation of chronic lumbar pain with scattered bilateral lower extremity symptoms. He had an L3-4 lumbar discectomy in 1996 and another discectomy in 1999 of the same level with Dr. Curtis Levi. He has diffuse degenerative changes throughout his lumbar spine with scattered regions of foraminal stenosis, but it is difficult to clearly discern which if any of his lumbar levels are leading to his symptoms. He did see some improvement in his hip pain with a left L5/S1 TFESI on 11/05/2023 but the shooting pain in left heel continued. He takes ibuprofen for pain, during his last visit Dr. Maurice recommended meloxicam but this did not work as well as ibuprofen. He was also recommended gabapentin but he was afraid to take it as his son has a history of narcotic abuse, he does know gabapentin is not a narcotic but he was still leery about taking it. Today he states his pain has increased and he is willing to try gabapentin so an order will be placed. He attended physical therapy with his last session on February 17 of this year which exacerbated his pain and at this point he is not willing to do more physical therapy. He states his pain is moderate to severe and lower back with radiation to the front aspect of right thigh on a L4-5 distribution down to ankle. On the left side the pain is mostly down to left hip with no complaints down the leg except for a sharp left heel pain. Bilateral lower extremity EMG on 02/23/2024 at [facility] showed right chronic L4 radiculopathy, and left mild chronic L5-S1 radiculopathy. ANKUR test on 01/28/2024 was unremarkable. Patient denies any bowel or bladder control issues, no saddle paresthesias. He has been trying to avoid more surgery for a long time but at this time he feels he might be ready to discuss surgery as the pain has become severe. Dr. Maurice will call patient to discuss imagine and treatment options. IMAGING: I personally reviewed the images with Dr. Maurice and read the radiologist report. Lumbar CT on 02/15/2024 at [facility] showed severe bilateral neural foraminal stenosis from L2-3 through L5-S1, mild central canal narrowing at L2-3 and moderate to severe left neural foraminal narrowing at L1-2. Prior laminectomy at L3-4. Lumbar CT on 02/15/2024 at [facility] showed moderate diffuse degenerative changes in the thoracic spine. PLAN: Surgical options to be discussed with Dr. Maurice [email or web address] Not available 03/29/2024 16:15:18 07/14/2024 07/14/2024 ASSESSMENT: Mr. Hernadez is a 63-year-old male who is status post C5-6 and C6-[address] Levi in 02/2023 with delayed anterior cervical hematoma formation ~1 week post-op, status post evacuation by Dr. Maurice in 03/2023, who was last seen on 01/19/2024 for evaluation of chronic lumbar pain with scattered bilateral lower extremity symptoms. He had an L3-4 lumbar discectomy in 1996 and another discectomy in 1999 of the same level with Dr. Curtis Levi. He has diffuse degenerative changes throughout his lumbar spine with scattered regions of foraminal stenosis, but it is difficult to clearly discern which if any of his lumbar levels are leading to his symptoms. He did see some improvement in his hip pain with a left L5/S1 TFESI on 11/05/2023 but the shooting pain in left heel continued. He takes ibuprofen, gabapentin (prescribed by us on his last visit), and occasional hydrocodone for flareups. During his last visit he complained of moderate to severe pain in lower back with radiation to the front aspect of right thigh on a L4-5 distribution down to ankle. On the left side the pain is mostly down to left hip with no complaints down the leg except for a sharp left heel pain. Today, he states the right side lower extremity symptoms have somewhat subsided but now he has numbness radiating from his lower back traveling laterally to left lower extremity down to outside of his foot with no pain component. He also reports intermittent right testicular numbness, he states that at 1 point he also had penile numbness but this has resolved. Bilateral lower extremity EMG on 02/23/2024 at [facility] showed right chronic L4 radiculopathy, and left mild chronic L5-S1 radiculopathy. ANKUR test on 01/28/2024 was unremarkable. Patient denies any bowel or bladder control issues, no saddle paresthesias. Dr. Maurice review imaging with patient explaining he has multilevel severe foraminal stenosis and that there are several options to address this: 1. L2-S1 fusion with anterior, lateral, and posterior approach 2. T10 to pelvis fusion 3. Spinal cord stimulator with pain management 4. Injections and p.o. medications by pain management Surgeon described surgical intervention in detail with the use of a spinal model., recovery time, risks, and benefits of surgery have also been explained. Risk include CSF leak, infection, bleeding, damage to surrounding tissue, damage to surrounding structures, non resolution of preop symptoms, need for more surgery. It was related that if patient decided to go through with a L2-S1 fusion, his right groin/testicle numbness will not be addressed. Patient states this symptom is not as bothersome and is somewhat intermittent. Patient and will go home and think about the options presented to him today. He will give us a call when they decide what path they would rather take. Patient verbalized understanding and is agreeable to this plan. Patient has no further questions or concerns at this time and is satisfied with this plan of care. Patient seen by surgeon and myself. IMAGING: I personally reviewed the images with Dr. Maurice and read the radiologist report. Lumbar MRI on 02/15/2024 show 1. There is severe bilateral neural foraminal stenosis from L2-L3 through L5-S1, mild central canal narrowing at L2-L3, and moderate/severe left neural foraminal narrowing at L1-L2. 2. There is a prior laminectomy at L3-L4. PLAN: Patient will call if he decides to go through with surgery. [email or web address] Not available 07/14/2024 15:50:17 Plan of Treatment Reminders Order Date Submit Date Provider Last Modified By Organization Details Last Modified Time Details Appointments None recorded. Lab None recorded. Referral None recorded. Procedures injection, transforami nal epidural, lumbar (PROC) 2023 024 [email or web address] [facility] Professional Charges, [address] [facility] [facility] [address], [place], [address], 11:11:19 Surgeries None recorded. Imaging None recorded. Medication Orders None recorded. Patient TargetsNo targets recorded. Patient Instructions Encounter Date Encounter Id Patient Instructions Last Modified By Organization Details Last Modified Time 02/23/2024 [id number] CATEGORY DESCRIPTION MINUTES Prepare to see the patient (e.g. review of tests) Obtain/review separately obtained history Perform medically appropriate exam/evaluation Order medications, tests, or procedures Licensing And Registration Director/educate the patient/family/car egiver Refer/communicate w/other healthcare professionals Document clinical information into health record Non-billable independent interp of results Non-billable care coordination TOTAL TIME [id number] (15-29) [id number] (30-44) 20338 (45-59) [id number] (60-74) 32 [id number] (10-19) 72944 (20-29) 59850 (30-39) 87281 (40-54) [email or web address] Not available 02/23/2024 16:01:44 Reason for Referral None Reported. Results Created Date Observation Date Name Description Value Unit Range Abnormal Flag Note LastModifiedBy Organization Detail LastModifiedTime 01/19/20 24 01/19/2024 XR, entir e spine , 2 or 3 view [place] [facility] [place] [address] [place] [address] Gutierrez pires Name: AYDEE HERNADEZ Lillyama pires : [phone] Gutierrez pires 0 Orderi ng Provid er: JESUS MANUEL RAMSEY T EXAM DATE: 2023 EXAM: XR SCOLIO SIS EVALUA TION, 2 OR 3 VWS HISTOR Y: Evalua tion of scolio sis COMPAR MICHAEL: None. FINDIN GS: There is minima l levocu rvatur e extend ing from the cervic al spine into the upper thorac ic spine. There is 7 degree s dextro curvat ure from T1 throug h T8. There is 16 degree s levocu rvatur e from T12 throug h L1, and 20 degree s dextro curvat ure from L1 throug h L4. There is mild levocu rvatur e from L4 throug h S1. There is prior ACDF from C5 throug h C7. There is no eviden ce of loosen ing of the hardwa re. There is modera te anteri or margin al spurri ng in the thorac ic spine. There is modera te to severe margin al spurri ng in the lumbar spine. No fractu re is identi fied. IMPRES DEBORA: 1. There is thorac olumba r scolio sis. Interp reted By: Eliazar lan MD Electr onical ly Signed By: Eliazar lan MD on 024 12:51 PM [email or web address] [facility] Radiology [place] [address], [place], [address], 01/24/2024 18:11:45 01/28/20 24 01/28/2024 ankle brach ial index No observ ation record ed. [email or web address] [facility] Radiology Cardiology [address] , [place], [address], 01/28/2024 16:43:05 02/15/20 24 02/15/2024 MRI, lumba r spine , w/wo contr ast [facility] [address] [place] [address] [place] [address] Patiama t Name: AYDEE pires : [phone] Gutierrez pires 0 Orderi ng Provid er: JESUS MANUEL RAMSEY T EXAM DATE: 2023 EXAM: MR LUMBAR SPINE W/WO CONTRA ST HISTOR Y: 63-yea r-old male with mid and low back pain, and pain in the left heel. COMPAR MICHAEL: CT of the same date. The patien t did not requir e sedati on for this exam. A baseli ne serum creati nine with eGFR was obtain ed prior to inject ion of contra st medium due to the patien ts risk factor s for AUSTIN. Calcul ated eGFR at time of exam was gfr>90 FINDIN GS: There is dextro curvat ure from T12 throug h L4 and levocu rvatur e at L4-L5. There is mild clerical clerk ior listhe sis of L5 on S1. There is no eviden ce of fractu re. There is severe anteri or margin al osteop hytic spurri ng. No pathol ogic lesion is identi fied in the lumbar spine. There are type II Modic change s from L1-L2 throug h L5-S1. The conus medull cony is normal in appear ance at the L1-L2 level. T12-L1 : There is a broad- based disc protru debora. There is no centra l canal stenos is or neural forami nal stenos is. L1-L2: There is a broad- based disc protru debora extend ing into the left neural forame n with mild endpla te spurri ng and modera te facet arthro katherin. There is stenos is of the left latera l recess and minima l centra l canal stenos is. There is modera te/sev ere left and minima l right neural forami nal stenos is. L2-L3: There is a broad- based disc protru debora and endpla te spurri ng extend ing into the neural forami na and mild facet arthro katherin. There is mild centra l canal stenos is. There is severe bilate ral neural forami nal stenos is. L3-L4: There is a prior kera ctomy. There is a broad- based disc protru debora and endpla te spurri ng extend ing into the neural forami na, and modera te facet arthro katherin. There is no centra l canal stenos is. There is severe bilate ral neural forami nal stenos is. L4-L5: There is a centra l disc extrus ion extend ing inferi andrés, a broad- based disc protru debora and endpla te spurri ng extend ing into the neural forami na, and modera te right and mild left facet arthro katherin. There is no centra l canal stenos is. There is severe bilate ral neural forami nal stenos is. L5-S1: There is a broad- based disc extrus ion extend ing inferi andrés with associ ated endpla te spurri ng and extens ion into the neural forami na. There is mild to modera te facet arthro katherin. There is no centra l canal stenos is. There is severe bilate ral neural forami nal stenos is. After intrav enous admini strati on of [address] ([facility] [address]- [address]25-0 2), there is no abnorm al enhanc ement in the lumbar spine. There are mild degene rative change s in the SI joints . There is mild atroph y of the parasp inous muscul ature. IMPRES DEBORA: 1. There is severe bilate ral neural forami nal stenos is from L2-L3 throug h L5-S1, mild centra l canal narrow ing at L2-L3, and modera te/sev ere left neural forami nal narrow ing at L1-L2. 2. There is a prior kera ctomy at L3-L4. Interp reted By: Eliazar lan MD Electr onical ly Signed By: Eliazar lan MD on 024 10:10 AM [email or web address] [facility] Radiology [facility] [address] [place], [address], 02/15/2024 17:29:11 02/15/20 24 02/15/2024 MRI, thora cic spine , w/wo contr ast [facility] [address] [place] [address], [place] [address] Patiama t Name: AYDEE pires : [phone] Gutierrez pires 0 Orderi ng Provid er: JESUS MANUEL RAMSEY T EXAM DATE: 2023 EXAM: MR THORAC IC W/WO CONTRA ST HISTOR Y: 63-yea r-old male with mid and low back pain and pain in the left heel. COMPAR MICHAEL: CT of the same date The patien t did not requir e sedati on for this exam. A baseli ne serum creati nine with eGFR was obtain ed prior to inject ion of contra st medium due to the patien ts risk factor s for [place]IN. Calcul ated eGFR at time of exam was gfr>90 FINDIN GS: There is mild diffus e kyphos is of the thorac ic spine. There is no focal sublux ation. There is no eviden ce of fractu re. There is severe anteri or margin al osteop hytic spurri ng. No pathol ogic lesion is identi fied in the thorac ic spine. The visual ized spinal cord appear s normal . There is prior anteri or fusion from C5 throug h C7 with associ ated parama gnetic artifa ct. T2-T3: There is a broad- based disc protru debora and endpla te spurri ng. There is no centra l canal stenos is. There is minima l neural forami nal narrow ing T3-T4: There is a left parace ntral disc protru debora. There is narrow ing of the left latera l recess but no centra l canal narrow ing. There is mild left neural forami nal narrow ing. T6-T7: There is a right parace ntral disc protru debora. There is narrow ing of the right latera l recess and mild right neural forami nal narrow ing. T7-T8: There is a centra l disc protru debora. There is no centra l canal narrow ing or neural forami nal narrow ing. T10-T1 1: There is a broad- based disc protru debora and endpla te spurri ng. There is no centra l canal narrow ing. There is severe right and modera te left neural forami nal narrow ing. T12-L1 : There is a broad- based disc protru debora. There is no centra l canal narrow ing or neural forami nal narrow ing. There are minima l to mild disc bulges in the remain ing levels of the thorac ic spine. There is no centra l canal stenos is or neural forami nal stenos is. After intrav enous admini strati on of [address] ([facility] [address]- 0325-0 2), there is no abnorm al enhanc ement in the thorac ic spine. There is no parasp inous soft tissue abnorm ality. The parasp inous muscul ature is symmet vinayak. IMPRES DEBORA: 1. There are modera te diffus e degene rative change s in the thorac ic spine. Interp reted By: Eliazar lan MD Electr onical ly Signed By: Eliazar lan MD on 024 10:10 AM [email or web address] [facility] Radiology [facility] [address] [place] [address], [phone], 02/15/2024 17:29:11 02/15/20 24 02/15/2024 CT, lumba r spine , w/o contr ast [address] [address] Patiama t Name: AYDEE Whitley t : [phone] Patien t 0 Orderi ng Provid er: JESUS MANUEL Pires EXAM DATE: 2023 EXAM: CT LUMBAR WITHOU T CONTRA ST HISTOR Y: 63-yea r-old male with chroni c back pain and bilate ral leg pain. COMPAR MICHAEL: MRI of the same date TECHNI QUE: 1 mm direct axial slices were obtain ed throug h the lumbar spine. Comput er-gen erated axial, sagitt al, and ambrocio l recons tructi ons are also provid ed for interp retati on. FINDIN GS: There is dextro curvat ure from T12 throug h L4 and levocu rvatur e at L4-L5. There is mild clerical clerk ior listhe sis of L5 on S1. There is no eviden ce of fractu re. There is severe anteri or margin al osteop hytic spurri ng. No pathol ogic lesion is identi fied in the lumbar spine. T12-L1 : There is a broad- based disc protru debora. There is no centra l canal stenos is or neural forami nal stenos is. L1-L2: There is a broad- based disc protru debora extend ing into the left neural forame n with mild endpla te spurri ng and modera te facet arthro katherin. There is stenos is of the left latera l recess and minima l centra l canal stenos is. There is modera te/sev ere left and minima l right neural forami nal stenos is. L2-L3: There is a broad- based disc protru debora and endpla te spurri ng extend ing into the neural forami na and mild facet arthro katherin. There is mild centra l canal stenos is. There is severe bilate ral neural forami nal stenos is. L3-L4: There is a prior kera ctomy. There is a broad- based disc protru debora and endpla te spurri ng extend ing into the neural forami na, and modera te facet arthro katherin. There is no centra l canal stenos is. There is severe bilate ral neural forami nal stenos is. L4-L5: There is a centra l disc extrus ion extend ing inferi andrés, a broad- based disc protru debora and endpla te spurri ng extend ing into the neural forami na, and modera te right and mild left facet arthro katherin. There is no centra l canal stenos is. There is severe bilate ral neural forami nal stenos is. L5-S1: There is a broad- based disc extrus ion extend ing inferi andrés with associ ated endpla te spurri ng and extens ion into the neural forami na. There is mild to modera te facet arthro katherin. There is no centra l canal stenos is. There is severe bilate ral neural forami nal stenos is. There are mild degene rative change s in the SI joints . There is mild atroph y of the parasp inous muscul ature. IMPRES DEBORA: 1. There is severe bilate ral neural forami nal stenos is from L2-L3 throug h L5-S1, mild centra l canal narrow ing at L2-L3, and modera te/sev ere left neural forami nal narrow ing at L1-L2. 2. There is a prior kera ctomy at L3-L4. Interp reted By: Eliazar lan MD Electr onical ly Signed By: Eliazar lan MD on 024 10:12 AM [email or web address] [facility] Radiology [facility] [address] [place], [address], 02/15/2024 17:29:12 02/15/20 24 02/15/2024 CT, thora cic spine , w/o contr ast [facility] [address] [facility] [place] [place] [address] Patiama t Name: AYDEE pires : [phone] Patiama t 0 Orderi ng Provid er: JESUS MANUEL BRAULIO T EXAM DATE: 2023 EXAM: CT THORAC IC W/O CONTRA ST HISTOR Y: 63-yea r-old male with chroni c back pain and bilate ral leg pain. COMPAR MICHAEL: MRI of the same date TECHNI QUE: 1 mm direct axial slices were obtain ed throug h the thorac ic spine. Comput er-gen erated axial, sagitt al, and ambrocio l recons tructi ons are also provid ed for interp retati on. FINDIN GS: There is mild diffus e kyphos is of the thorac ic spine. There is mild levocu rvatur e at the cervic othora cic juncti on, and mild dextro curvat ure from T4 throug h T7, and levocu rvatur e from T7 throug h T12. There is no focal sublux ation. There is no fractu re. There is severe anteri or and latera l margin al osteop hytic spurri ng. No pathol ogic lesion is identi fied in the thorac ic spine. The visual ized spinal cord appear s normal . T2-T3: There is a broad- based disc protru debora and endpla te spurri ng. There is no centra l canal stenos is. There is minima l neural forami nal narrow ing T3-T4: There is a left parace ntral disc protru debora. There is narrow ing of the left latera l recess but no centra l canal narrow ing. There is mild left neural forami nal narrow ing. T6-T7: There is a right parace ntral disc protru debora. There is narrow ing of the right latera l recess and mild right neural forami nal narrow ing. T7-T8: There is a centra l disc protru debora. There is no centra l canal narrow ing or neural forami nal narrow ing. T10-T1 1: There is a broad- based disc protru debora and endpla te spurri ng. There is no centra l canal narrow ing. There is severe right and modera te left neural forami nal narrow ing. T12-L1 : There is a broad- based disc protru debora. There is no centra l canal narrow ing or neural forami nal narrow ing. There are minima l to mild disc bulges in the remain ing levels of the thorac ic spine. There is no centra l canal stenos is or neural forami nal stenos is. There is no parasp inous soft tissue abnorm ality. The parasp inous muscul ature is symmet vinayak. IMPRES DEBORA: 1. There are modera te diffus e degene rative change s in the thorac ic spine. Interp reted By: Eliazar lan MD Electr onical ly Signed By: Eliazar lan MD on 024 10:14 AM [email or web address] [facility] Radiology [facility] [address] [place], [phone], 02/15/2024 17:29:12 02/23/20 24 nerve condu ction study /EMG, lower extre mity (PROC ) No observ ation record ed. [email or web address] Valentine Jones MD [address] [place], [phone], 02/23/2024 16:16:53 Result Notes Documentation Provider Name and Address Organization Details Recorded Time Xr, Entire Spine, 2 Or 3 View : [facility] [place] [address] [place] [address] Patient Name: AYDEE HERNADEZ Patient : 1960 Patient Ordering Provider: JESUS MANUEL MAURICE EXAM DATE: 01/19/2024 EXAM: XR SCOLIOSIS EVALUATION, 2 OR 3 VWS HISTORY: Evaluation of scoliosis COMPARISON: None. FINDINGS: There is minimal levocurvature extending from the cervical spine into the upper thoracic spine. There is 7 degrees dextrocurvature from T1 through T8. There is 16 degrees levocurvature from T12 through L1, and 20 degrees dextrocurvature from L1 through L4. There is mild levocurvature from L4 through S1. There is prior ACDF from C5 through C7. There is no evidence of loosening of the hardware. There is moderate anterior marginal spurring in the thoracic spine. There is moderate to severe marginal spurring in the lumbar spine. No fracture is identified. IMPRESSION: 1. There is thoracolumbar scoliosis. Interpreted By: Reece Herman MD S MANUEL MAURICE MD [address] [place] [address], [phone] 01/24/2024 18:11:45 Mri, Lumbar Spine, W/wo Contrast : [address] [address] Patient Name: AYDEE HERNADEZ Patient : 1960 Patient Ordering Provider: JESUS MANUEL MAURICE EXAM DATE: 02/15/2024 EXAM: MR LUMBAR SPINE W/WO CONTRAST HISTORY: 63-year-old male with mid and low back pain, and pain in the left heel. COMPARISON: CT of the same date. The patient did not require sedation for this exam. A baseline serum creatinine with eGFR was obtained prior to injection of contrast medium due to the patients risk factors for [place]. Calculated eGFR at time of exam was gfr>90 FINDINGS: There is dextrocurvature from T12 through L4 and levocurvature at L4-L5. There is mild posterior listhesis of L5 on S1. There is no evidence of fracture. There is severe anterior marginal osteophytic spurring. No pathologic lesion is identified in the lumbar spine. There are type II Modic changes from L1-L2 through L5-S1. The conus medullaris is normal in appearance at the L1-L2 level. T12-L1: There is a broad-based disc protrusion. There is no central canal stenosis or neural foraminal stenosis. L1-L2: There is a broad-based disc protrusion extending into the left neural foramen with mild endplate spurring and moderate facet arthropathy. There is stenosis of the left lateral recess and minimal central canal stenosis. There is moderate/severe left and minimal right neural foraminal stenosis. L2-L3: There is a broad-based disc protrusion and endplate spurring extending into the neural foramina and mild facet arthropathy. There is mild central canal stenosis. There is severe bilateral neural foraminal stenosis. L3-L4: There is a prior laminectomy. There is a broad-based disc protrusion and endplate spurring extending into the neural foramina, and moderate facet arthropathy. There is no central canal stenosis. There is severe bilateral neural foraminal stenosis. L4-L5: There is a central disc extrusion extending inferiorly, a broad-based disc protrusion and endplate spurring extending into the neural foramina, and moderate right and mild left facet arthropathy. There is no central canal stenosis. There is severe bilateral neural foraminal stenosis. L5-S1: There is a broad-based disc extrusion extending inferiorly with associated endplate spurring and extension into the neural foramina. There is mild to moderate facet arthropathy. There is no central canal stenosis. There is severe bilateral neural foraminal stenosis. After intravenous administration of 10 mL Gadavist ([facility] [address]-20), there is no abnormal enhancement in the lumbar spine. There are mild degenerative changes in the SI joints. There is mild atrophy of the paraspinous musculature. IMPRESSION: 1. There is severe bilateral neural foraminal stenosis from L2-L3 through L5-S1, mild central canal narrowing at L2-L3, and moderate/severe left neural foraminal narrowing at L1-L2. 2. There is a prior laminectomy at L3-L4. Interpreted By: Reece Herman MD S MANUEL MAURICE MD [address] [place] [address], [phone] 02/15/2024 17:29:11 Mri, Thoracic Spine, W/wo Contrast : [address] [address] Patient Name: AYDEE HERNADEZ Patient : 1960 Patient Ordering Provider: JESUS MANUEL MAURICE EXAM DATE: 02/15/2024 EXAM: MR THORACIC W/WO CONTRAST HISTORY: 63-year-old male with mid and low back pain and pain in the left heel. COMPARISON: CT of the same date The patient did not require sedation for this exam. A baseline serum creatinine with eGFR was obtained prior to injection of contrast medium due to the patients risk factors for [place]. Calculated eGFR at time of exam was gfr>90 FINDINGS: There is mild diffuse kyphosis of the thoracic spine. There is no focal subluxation. There is no evidence of fracture. There is severe anterior marginal osteophytic spurring. No pathologic lesion is identified in the thoracic spine. The visualized spinal cord appears normal. There is prior anterior fusion from C5 through C7 with associated paramagnetic artifact. T2-T3: There is a broad-based disc protrusion and endplate spurring. There is no central canal stenosis. There is minimal neural foraminal narrowing T3-T4: There is a left paracentral disc protrusion. There is narrowing of the left lateral recess but no central canal narrowing. There is mild left neural foraminal narrowing. T6-T7: There is a right paracentral disc protrusion. There is narrowing of the right lateral recess and mild right neural foraminal narrowing. T7-T8: There is a central disc protrusion. There is no central canal narrowing or neural foraminal narrowing. T10-T11: There is a broad-based disc protrusion and endplate spurring. There is no central canal narrowing. There is severe right and moderate left neural foraminal narrowing. T12-L1: There is a broad-based disc protrusion. There is no central canal narrowing or neural foraminal narrowing. There are minimal to mild disc bulges in the remaining levels of the thoracic spine. There is no central canal stenosis or neural foraminal stenosis. After intravenous administration of 10 mL Gadavist ([facility] [id number]), there is no abnormal enhancement in the thoracic spine. There is no paraspinous soft tissue abnormality. The paraspinous musculature is symmetric. IMPRESSION: 1. There are moderate diffuse degenerative changes in the thoracic spine. Interpreted By: Reece Herman MD S MANUEL MAURICE MD [address] [place] [address], [phone] 02/15/2024 17:29:11 Ct, Lumbar Spine, W/o Contrast : [facility] [address] [place] [address] Patient Name: AYDEE HERNADEZ Patient : 1960 Patient Ordering Provider: JESUS MANUEL MAURICE EXAM DATE: 02/15/2024 EXAM: CT LUMBAR WITHOUT CONTRAST HISTORY: 63-year-old male with chronic back pain and bilateral leg pain. COMPARISON: MRI of the same date TECHNIQUE: 1 mm direct axial slices were obtained through the lumbar spine. Computer-generated axial, sagittal, and coronal reconstructions are also provided for interpretation. FINDINGS: There is dextrocurvature from T12 through L4 and levocurvature at L4-L5. There is mild posterior listhesis of L5 on S1. There is no evidence of fracture. There is severe anterior marginal osteophytic spurring. No pathologic lesion is identified in the lumbar spine. T12-L1: There is a broad-based disc protrusion. There is no central canal stenosis or neural foraminal stenosis. L1-L2: There is a broad-based disc protrusion extending into the left neural foramen with mild endplate spurring and moderate facet arthropathy. There is stenosis of the left lateral recess and minimal central canal stenosis. There is moderate/severe left and minimal right neural foraminal stenosis. L2-L3: There is a broad-based disc protrusion and endplate spurring extending into the neural foramina and mild facet arthropathy. There is mild central canal stenosis. There is severe bilateral neural foraminal stenosis. L3-L4: There is a prior laminectomy. There is a broad-based disc protrusion and endplate spurring extending into the neural foramina, and moderate facet arthropathy. There is no central canal stenosis. There is severe bilateral neural foraminal stenosis. L4-L5: There is a central disc extrusion extending inferiorly, a broad-based disc protrusion and endplate spurring extending into the neural foramina, and moderate right and mild left facet arthropathy. There is no central canal stenosis. There is severe bilateral neural foraminal stenosis. L5-S1: There is a broad-based disc extrusion extending inferiorly with associated endplate spurring and extension into the neural foramina. There is mild to moderate facet arthropathy. There is no central canal stenosis. There is severe bilateral neural foraminal stenosis. There are mild degenerative changes in the SI joints. There is mild atrophy of the paraspinous musculature. IMPRESSION: 1. There is severe bilateral neural foraminal stenosis from L2-L3 through L5-S1, mild central canal narrowing at L2-L3, and moderate/severe left neural foraminal narrowing at L1-L2. 2. There is a prior laminectomy at L3-L4. Interpreted By: Reece Herman MD S MANUEL MAURICE MD [address] [place] [address], [phone] 02/15/2024 17:29:12 Ct, Thoracic Spine, W/o Contrast : [address] [address] Patient Name: AYDEE HERNADEZ Patient : 1960 Patient Ordering Provider: JESUS MANUEL MAURICE EXAM DATE: 02/15/2024 EXAM: CT THORACIC W/O CONTRAST HISTORY: 63-year-old male with chronic back pain and bilateral leg pain. COMPARISON: MRI of the same date TECHNIQUE: 1 mm direct axial slices were obtained through the thoracic spine. Computer-generated axial, sagittal, and coronal reconstructions are also provided for interpretation. FINDINGS: There is mild diffuse kyphosis of the thoracic spine. There is mild levocurvature at the cervicothoracic junction, and mild dextrocurvature from T4 through T7, and levocurvature from T7 through T12. There is no focal subluxation. There is no fracture. There is severe anterior and lateral marginal osteophytic spurring. No pathologic lesion is identified in the thoracic spine. The visualized spinal cord appears normal. T2-T3: There is a broad-based disc protrusion and endplate spurring. There is no central canal stenosis. There is minimal neural foraminal narrowing T3-T4: There is a left paracentral disc protrusion. There is narrowing of the left lateral recess but no central canal narrowing. There is mild left neural foraminal narrowing. T6-T7: There is a right paracentral disc protrusion. There is narrowing of the right lateral recess and mild right neural foraminal narrowing. T7-T8: There is a central disc protrusion. There is no central canal narrowing or neural foraminal narrowing. T10-T11: There is a broad-based disc protrusion and endplate spurring. There is no central canal narrowing. There is severe right and moderate left neural foraminal narrowing. T12-L1: There is a broad-based disc protrusion. There is no central canal narrowing or neural foraminal narrowing. There are minimal to mild disc bulges in the remaining levels of the thoracic spine. There is no central canal stenosis or neural foraminal stenosis. There is no paraspinous soft tissue abnormality. The paraspinous musculature is symmetric. IMPRESSION: 1. There are moderate diffuse degenerative changes in the thoracic spine. Interpreted By: Reece Herman MD S MANUEL MAURICE MD [address] [place] [address], [phone] 02/15/2024 17:29:12 Problems No Known Problems Procedures Surgical History Date Name Laterality Status Provider Name and Address Organization Details Recorded Time 02/23/20 24 Electromyography (EMG) with Nerve Conduction Study (NCV) completed VALENTINE JONES MD [address] [place] [address], [phone] 02/23/2024 16:00:18 11/05/19 24 Lumbar Transforaminal Epidural Injection - Leann completed MARYJANE NORIEGA MD [address] [place] [address], [phone] 11/05/2023 15:58:32 tonsillectomy completed [facility] 03/18/2023 08:53:09 hernia repair completed [facility] 03/18/2023 08:53:15 Back Surgery completed [facility] 03/18/2023 08:53:23 Cholecystectomy completed [facility] 03/18/2023 08:53:30 Imaging Results None recorded. Procedure Notes None recorded. Medical Equipment None Reported. Allergies Allergen ID Allergen Name Allergen Category Reaction Reaction Severity Criticality Documentation Date Start Date Code Code System Note Provider Name and Address Organization Details Recorded Time 330444 phenobarb ital medicatio n Not available Not available Not available 12/28/2022 8134 RxNorm Alma Felipe [facility] 3 10:54:25 150360 Levaquin medicatio n other Not available Not available 12/28/2022 84914 2 RxNorm Alma Felipe [facility] 3 10:54:25 775171 aspirin medicatio n Not available Not available Not available 09/11/2024 1191 RxNorm Dolly Harrell [facility] 5 10:07:07 [id number] levofloxa [place] medicatio n Not available Not available Not available 09/11/2024 75553 RxNorm Dolly Harrell [facility] 5 10:07:07 Medications Name Sig Start Date Stop Date Status Note LastModified by Organization Details LastModified Time blood pressu solution kit active Not Available Not Available Not Available azithromyci n 250 mg tablet TAKE 2 TABLETS (500 MG) BY ORAL ROUTE ONCE DAILY FOR 1 DAY THEN 1 TABLET (250 MG) BY ORAL ROUTE ONCE DAILY FOR 4 DAYS 12/10 completed Not Available Not Available Not Available metoprolol succinate ER 50 mg tablet,exte nded release 24 hr Take 1 tablet every day by oral route for 90 days. active Not Available Not Available No t Available enalapril maleate 20 mg tablet Take 1 tablet every day by oral route for 90 days. active Not Available Not Available No t Available minocycline 100 mg capsule TAKE 1 CAPSULE BY MOUTH TWICE DAILY FOR 10 DAYS active Not Available Not Available No t Available Mobic 7.5 mg tablet Take 1 tablet every day by oral route as needed. 2023 active Not Available Not Available Not Avai lable sulfamethox azole 800 mg-trimetho prim 160 mg tablet TAKE 1 TABLET BY MOUTH EVERY 12 HOURS active Not Available Not Available No t Available amitriptyli ne 50 mg tablet TAKE 1 TABLET DAILY active Not Available Not Available No t Available triamcinolo ne acetonide 0.1 % topical cream 12/10 completed Not Available Not Available Not Available amoxicillin 875 mg tablet TAKE 1 TABLET BY MOUTH TWICE DAILY FOR 10 DAYS 11/29 /2022 completed Not Available Not Available Not Available nifedipine ER 60 mg tablet,exte nded release 24 hr TAKE 1 TABLET BY MOUTH DAILY 03/18 completed Not Available Not Available Not Available imiquimod 5 % topical cream packet 04/28 completed Not Available Not Available Not Available benzonatate 100 mg capsule TAKE 1 CAPSULE BY MOUTH THREE TIMES DAILY NEEDED FOR COUGH FOR 7 DAYS active Not Available Not Available No t Available cephalexin 500 mg capsule TAKE 1 CAPSULE BY MOUTH TWICE DAILY FOR 10 DAYS 01/04 completed Not Available Not Available Not Available lansoprazol e 15 mg capsule,del ayed release 04/28 completed Not Available Not Available Not Available gabapentin 300 mg capsule Take 1 capsule 3 times a day by oral route. 2024 active Not Available Not Available Not Avai lable dexamethaso ne sodium phosphate 4 mg/mL injection solution inject 1 ml IM once 03/18 completed Not Available Not Available Not Available epinephrine 0.3 mg/0.3 mL injection, auto-inject or Take 1 auto as needed by injection route. active Not Available Not Available No t Available Hilger 7.5 mg-325 mg tablet Take 1 tablet every 6 hours by oral route as needed. 10/18 completed Not Available Not Available Not Available methylpredn isolone 4 mg tablets in a dose pack Take as instructe d, please follow instructi ons on the medicatio n packaging insert 01/04 completed Not Available Not Available Not Available fluticasone propionate 50 mcg/actuati on nasal spray,suspe nsion [place] 1 spray every day by intranasa l route. 03/18 completed Not Available Not Available Not Available loratadine 10 mg tablet TAKE 1 TABLET BY MOUTH ONCE DAILY FOR ALLERGIES active Not Available Not Available No t Available sildenafil (pulmonary hypertensio n) 20 mg tablet TAKE 1-TABLET BY MOUTH, 30 MINS TO 4 HOURS BEFORE SEXUAL ACTIVITY active Not Available Not Available No t Available ibuprofen active Not Available Not Sailaja ilable Not Available hydrochloro thiazide 12.5 mg tablet Take 1 tablet every day by oral route for 90 days. active Not Available Not Available No t Available diclofenac 1 % topical gel APPLY 2 GRAMS TOPICALLY TO THE AFFECTED AREA FOUR TIMES DAILY 03/18 completed Not Available Not Available Not Available naftifine 2 % topical cream active Not Available Not Available Not Available Zepbound 2.5 mg/0.5 mL subcutaneou s pen injector active Not Available Not Available Not Available Vitals Date Recorded Body height Body mass index (BMI) Body weight Systolic And Diastolic Provider Name and Address Organization Details Last Updated DateTime 07/14/2024 180.34 cm 35.3 kg/m2 985797.87 g 124/74 mm[Hg] [facility] 07/14/2024 13:59:30 Date Recorded Body height Body mass index (BMI) Body weight Body temperature Heart rate Oxygen saturation Oxygen saturation in Arterial blood by Pulse oximetry Systolic And Diastolic Provider Name and Address Organization Details Last Updated DateTime 180.34 cm 35.3 kg/m2 507547. 87 g 97.9 [degF] 64 /min 94 % 94 % 124/80 mm[Hg] [facility] 11:03:44 Date Recorded Body height Body mass index (BMI) Body weight Systolic And Diastolic Provider Name and Address Organization Details Last Updated DateTime 01/19/2024 180.34 cm 35.3 kg/m2 271021.87 g 122/80 mm[Hg] [facility] 01/19/2024 09:35:40 Date Recorded Body height Body mass index (BMI) Body weight Heart rate Systolic And Diastolic Provider Name and Address Organization Details Last Updated DateTime 02/23/2024 180.34 cm 35.3 kg/m2 833316.8 7 g 73 /min 148/88 mm[Hg] [facility] 02/23/2024 11:12:21 Date Recorded Body height Body mass index (BMI) Body weight Systolic And Diastolic Provider Name and Address Organization Details Last Updated DateTime 03/29/2024 180.34 cm 35.3 kg/m2 949262.87 g 134/75 mm[Hg] Nila [facility] 03/29/2024 10:22:55 Social History Question Answer Notes LastModified by Organizat ion Details LastModified Time Tobacco Smoking Status Former Smoker Vivian Solomon [facility] 03/18/2023 08:52:58 What Was The Date Of Your Most Recent Tobacco Screening? 10/19/2023 [email or web address] Information not available 10/19/2023 Sex: Male Functional Status None recorded. Mental Status None recorded. Family History Relationship Description Onset Age of this Age Resolved Age Notes LastModified by Organization Details LastModified Time Unspecified Relation Malignant neoplastic disease [email or web address] Not available 03/18 08:52:38 Unspecified Relation Hypertensive disorder [email or web address] Not available 03/18 08:52:46 Unspecified Relation Myocardial infarction [email or web address] Not available 02/28 08:52:52 Medical History Condition Response Massage Therapy for current problem N Gout N Other N Hyperthyroidism N Emphysema N COPD N Injections for current problem N Arthritis N Cancer Y Stroke N Fibromyalgia N Kidney Disease N Black Lung N NSAID Use Y Bleeding Disorder N Tuberculosis N Genetic Disorder N AIDS/HIV N Chiropractor treatment for current probl em N Ultrasound Treatment for current problem N Asthma N Thyroid Disorder N Pulmonary Embolism N TENS Unit for current problem Y Traction for current problem N Narcotic Pain Medication for current pro blem N Hypothyroidism N Deep Vein Thrombosis N High Cholesterol N Liver Disease N Dialysis N Neuro-modulating Drugs for current probl em N Thyroid Problems N Steroid Pack for current problem N Osteoporosis/Osteopenia N Heart Attack ([place]) N Mental Illness N Diabetes N Kidney Failure N Epilepsy/Seizures N Sleep Apnea N Physical Therapy Treatments for current problem Y Hypertension Y Immunizations Vaccine Type Date Status Note Provider Nam e and Address Organization Details Recorded Time COVID-19, mRNA, LNP-S, PF, 100 mcg/0.5mL dose or 50 mcg/0.25mL dose 03/26/2021 [facility] 12/28/2022 10:54:26 COVID-19, mRNA, LNP-S, PF, 100 mcg/0.5mL dose or 50 mcg/0.25mL dose 04/30/2021 [facility] 12/28/2022 10:54:26 influenza, unspecified formulation 02/14/2017 [facility] 12/28/2022 10:54:26 influenza, unspecified formulation 03/10/2017 [facility] 12/28/2022 10:54:26 Past Encounters Encounter ID Performer Location Encounter Start Date Encounter Closed Date Diagnosis/Indication Diagnosis SNOMED-CT Code Diagnosis ICD10 Code Diagnosis Note [id number] MIGUEL LEVI [facility] [address] [place] [address] 03/18/2023 08:47:12 03/19/2023 04:05:17 Compression of cervical spinal cord 9457047820 G95.20 [id number] MIGUEL LEVI MD SURGERY SCHEDULE [address] [place] [address] 03/26/2023 10:52:14 03/26/2023 10:54:34 Postoperative pain 388798020 G89.18 [id number] JESUS MANUEL MAURICE MD SURGERY SCHEDULE [address] [place] [address] 04/29/2023 07:55:37 05/07/2023 09:08:07 [id number] DOUG GROSSMAN MD [facility] [address] [place] [address] 05/06/2023 15:36:23 05/06/2023 16:49:07 Prostatitis 8337150 N41.9 Hemospermia 70245602 R36 .1 [id number] MIGUEL LEVI MD [facility]G [facility] CLOS[facility] [address] [facility] [address] [place] [address] 05/10/2023 13:43:19 05/11/2023 04:09:30 Postoperative care [id number] Z48.89 [id number] CLARY LOERA IV, PA-C [facility] CLOSED [address] [address] 05/10/2023 14:37:35 05/10/2023 15:59:50 Left tarsal tunnel syndrome [id number] G57.52 Patient is a 62-year-ol d male who presents to the clinic complainin g of a 1 year history of pain to the left heel. 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 Patient describes his pain as burning and located to the posterior calcaneal region and migrating proximally into the medial arch. Patient was nontender at the insertion site of the plantar aponeurosi s and states that his pain is worst when sitting still and improves with ambulation . Given the patient's presenting complaint radiograph ic imaging was obtained of the foot and ankle, results of those studies noted no acute fracture or dislocatio n. Given the descriptio n of the patient's pain we are concerned that he may be suffering from tarsal tunnel syndrome with entrapment of the posterior tibial nerve. As a result we have started the patient on a p.o. Medrol Dosepak and referred him to physical therapy. We will see the patient back in 3 weeks at which time we will evaluate for improvemen t in his condition and if no improvemen t has been achieved at that point in time we will refer him to our foot and ankle specialist Dr. Guzman. [id number] VIVIENNE DANIELS APRN [facility] [address] [facility] [place] [address] 08/09/2023 09:48:13 08/10/2023 04:50:36 History of cervical spine fusion [id number] 101 Z98.1 Cervical spondylosis 387 172204 M47.812 Lumbar spondylosis 41992 0009 M47.896 Lumbar radiculopathy 128 543561 M54.16 [id number] MIGUEL LEVI MD [facility] CL[facility] [address] [facility] [place] [address] 10/18/2023 08:19:40 10/19/2023 04:27:43 Lumbar radiculopathy [id number] M54.16 [id number] MARYJANE NORIEGA MD [facility] CLOSED [address] [place] [id number] 10/19/2023 09:05:10 10/19/2023 12:53:39 Degeneration of lumbar intervertebral disc 84293804 M51.36 Lumbar radiculopathy 128 978751 M54.16 Lumbar spondylosis 30243 0009 M47.816 Low back pain 239923860 M54.51 [id number] MARYJANE NORIEGA MD [facility] PROFESSIO NAL CHARGES [address] [facility], [address] [place] [id number] 11/05/2023 14:49:27 11/11/2023 09:23:43 Lumbar radiculopathy 905197570 M54.16 [id number] PROMISE REAVES PA-C PAIN MEDICINE CLOSED [address] [id number] 01/05/2024 09:49:41 01/05/2024 16:17:18 Lumbar radiculopathy 603398712 M54.16 Degenerati on of lumbar intervertebral disc 69731455 M51.36 Lumbar spondylosis 96850 0009 M47.816 Low back pain 699860028 M54.51 [id number] JESUS MANUEL MAURICE MD [facility] CL[facility] [address] [facility] [address] [address] 01/19/2024 09:19:49 01/20/2024 04:24:50 Lumbar spondylosis 603562548 M47.896 [id number] VALENTINE JONES MD [facility] AT[facility] CLOSED [address] [id number] 02/23/2024 10:41:39 02/26/2024 17:31:10 Lumbosacral radiculopathy 9509948 M54.17 Right chronic L4 radiculopa thy with reinnervat ion and ongoing denervatio n. Left mild chronic L5/S1 radiculopa thy with reinnervat ion. No acute or active denervatio n. Discussed results with patient. Recommend follow-up with neurosurge ry. [id number] CANELO ELLIOTT APRN NEUROSUR[facility] CL[facility] [address] [facility] [address] [place] [phone] 03/29/2024 10:05:19 03/30/2024 04:52:01 Lumbar radiculopathy 977930063 M54.16 [id number] CANELO ELLIOTT APRN [facility]UR[facility] CL[facility] [address] [facility] [address] [place] [address] 07/14/2024 13:47:42 07/15/2024 04:51:12 Lumbar radiculopathy 627637809 M54.16 Low back pain 793214268 M54.50 Health Concerns Section Related Observation LastModified by Organization Detai ls LastModified Time None Recorded Concern Status LastModified by Organization Details LastModified Time None Recorded Advance Directives Directive None Recorded Payers Insurance Date Sequence Insurance Name Policy Number Policy Ross Covered Member ID Ross Member ID Guarantor Name 03/31/2024 1 [place] ([facility]) [id number] Aydee Hernadez [id number] Aydee Hernadez 09/11/2024 1 [facility] [id number] Aydee Hernadez [id number] Aydee Hernadez Notes Date Note Type Note Provider Name and Address Organization Details Recorded Time 01/05/2024 text/html Injection follow upReported bypatient.Location:low back Most recent procedures:lumbar TFESI (L5-S1 & S1); date: (11/05/23) % of reliefpain relief 50% Duration of relief:ongoing Severity:current pain 3/10; average pain 4/10 Woundinjection site healed well; no fever; no bleeding PROMISE REAVES PA-C [address] [place] [address], [phone], [facility] 01/05/2024 11:25:49 01/19/2024 text/html Mr. Hernadez is a 63 y/o male who is status post C5-6 and C6-[address] Levi performed on March 26, 2023 with evacuation of anterior cervical hematoma on April 04, 2023 who I am seeing as a second opinion in relation to lumbar pain with bilateral lower extremity symptoms. He reports that he previously underwent discectomies of his lumbar spine at the same level but on different sides in 1996 and 1999. He experienced good relief with the surgeries. He reports the symptoms he is currently experiencing feels similar in characteristic as the pain he was experiencing prior to his remote lumbar surgeries, but is nowhere near as severe and the distribution of pain varies. He reports that this has been present for several years, but has been progressively been worsening. He describes lumbar pain. He also has pain that radiates into his hips that he reports becomes progressively worse with walking and improves with rest. He has rating pain into his right anterior and lateral hip and thigh as well as into the groin. He has paresthesias that radiate further below the knee into the anterior lateral zuniga. He previously was experiencing groin numbness with involvement of his left testicle and left half of his penis, but this resolved 1 to 2 years ago and was replaced with left heel pain, that is now constantly present. He describes this as a stabbing pain in his left heel that is sharp in nature with some associated paresthesias in this region and along the plantar surface of his foot. He finds that sitting will often exacerbate his heel pain. His right lower extremity pain does not involve his foot. He also reports that he has increasing impotence in spite of taking the ED medication. He has been taking ibuprofen with some relief. He underwent a left-sided L5-S1 TFESI with Dr. Noriega on November 05, 2023 which she does report significantly improved his hip pain bilaterally, but did not significantly improve his other complaints. He reports that his balance is impaired, but it has not been worsening. I have reviewed his MRI lumbar spine as well as his lumbar x-rays acquired within the [facility] system on 05/28/2023 and August 09, 2023, respectively. There is diffuse lumbar spondylosis. There is central canal stenosis that is most impressive at L1-2, but this is moderate in severity at its worst. There is some left L2-3 subarticular stenosis. There is severe right L4 and L5 foraminal stenosis as well as left foraminal stenosis at the segments. There is severe left L2 foraminal stenosis. There is lumbar dextroscoliosis with an apex at L2. There is no evidence of spondylolisthesis on his dynamic x-rays. JESUS MANUEL MAURICE MD [address] [place] [address], [phone], [facility] 01/19/2024 15:56:49 02/23/2024 text/html 63-year-old male with chronic low back pain and radiation down both legs. The low back pain radiates down the right anterior thigh and medial zuniga. He notes associated intermittent leg weakness and heaviness. The left leg experiences more of a sharp electric shock sensation in his left heel that is intermittent. He is status post lumbar laminectomy at L3-L4 many years ago for right lumbar radiculopathy. He underwent a second lumbar surgery for left radiculopathy at the same level. VALENTINE JONES MD [address] [place] [address], [place], [phone], [facility] 02/23/2024 16:02:28 03/29/2024 text/html Mr. Hernadez is a 63-year-old male who is status post C5-6 and C6-[address] Levi in 02/2023 with delayed anterior cervical hematoma formation ~1 week post-op, status post evacuation by Dr. Maurice in 03/2023, who was last seen on 01/19/2024 for evaluation of chronic lumbar pain with scattered bilateral lower extremity symptoms.He had an L3-4 lumbar discectomy in 1996 and another discectomy in 1999 of the same level with Dr. Curtis Levi.He has diffuse degenerative changes throughout his lumbar spine with scattered regions of foraminal stenosis, but it is difficult to clearly discern which if any of his lumbar levels are leading to his symptoms. He did see some improvement in his hip pain with a left L5/S1 TFESI on 11/05/2023 but the shooting pain in left heel continued. He takes ibuprofen for pain, during his last visit Dr. Maurice recommended meloxicam but this did not work as well as ibuprofen. He was also recommended gabapentin but he was afraid to take it as his son has a history of narcotic abuse, he does know gabapentin is not a narcotic but he was still leery about taking it. Today he states his pain has increased and he is willing to try gabapentin so an order will be placed. He attended physical therapy with his last session on February 17 of this year which exacerbated his pain and at this point he is not willing to do more physical therapy.He states his pain is moderate to severe and lower back with radiation to the front aspect of right thigh on a L4-5 distribution down to ankle. On the left side the pain is mostly down to left hip with no complaints down the leg except for a sharp left heel pain.Bilateral lower extremity EMG on 02/23/2024 at [facility] showed right chronic L4 radiculopathy, and left mild chronic L5-S1 radiculopathy. ANKUR test on 01/28/2024 was unremarkable. CANELO ELLIOTT, NURSERY LABORER [address] [place], [phone], [facility] 03/29/2024 16:16:23 07/14/2024 text/html Mr. Hernadez is a 63-year-old male who is status post C5-6 and C6-[address] Levi in 02/2023 with delayed anterior cervical hematoma formation ~1 week post-op, status post evacuation by Dr. Maurice in 03/2023, who was last seen on 01/19/2024 for evaluation of chronic lumbar pain with scattered bilateral lower extremity symptoms.He had an L3-4 lumbar discectomy in 1996 and another discectomy in 1999 of the same level with Dr. Curtis Levi.He has diffuse degenerative changes throughout his lumbar spine with scattered regions of foraminal stenosis, but it is difficult to clearly discern which if any of his lumbar levels are leading to his symptoms. He did see some improvement in his hip pain with a left L5/S1 TFESI on 11/05/2023 but the shooting pain in left heel continued. He takes ibuprofen, gabapentin (prescribed by us on his last visit), and occasional hydrocodone for flareups. During his last visit he complained of moderate to severe pain in lower back with radiation to the front aspect of right thigh on a L4-5 distribution down to ankle. On the left side the pain is mostly down to left hip with no complaints down the leg except for a sharp left heel pain. Today, he states the right side lower extremity symptoms have somewhat subsided but now he has numbness radiating from his lower back traveling laterally to left lower extremity down to outside of his foot with no pain component. Bilateral lower extremity EMG on 02/23/2024 at [facility] showed right chronic L4 radiculopathy, and left mild chronic L5-S1 radiculopathy. ANKUR test on 01/28/2024 was unremarkable. CANELO ELLIOTT, NURSERY LABORER [address] [place], [phone], [facility] 07/14/2024 15:50:51
--- OUTSIDE RECORDS SUMMARY | 2024-12-14 06:49 | XMS_ITS | Referral Summary ---
Author Organization [employer] ([place], [place], [place], [place]) Address [address] [place] [address] Care Team Providers Care Promotions Coordinator Name Role Phone Unavailable Primary Care Provider Unavailabl e Allergies Active Allergy Reactions Criticality Noted Date Comments Levofloxacin Other (See Comments) Medium 04/03/2023 Pt states makes his joints sore. Phenobarbital Other (See Comments) High 04/03/2023 Pt states it makes him crazy Shellfish Containing Products 04/03/2023 Pt states he was told he was by his supervisor [employer], but has never had a problem with eat and does eat shellfish. Medications amitriptyline (ELAVIL) 50 MG tablet Take 1 tablet (50 mg total) by mouth nightly. 03/07/2023 Active enalapril (VASOTEC) 20 MG tablet Take 1 tablet (20 mg total) by mouth 2 (two) times daily. 03/05/2023 Active hydroCHLOROthiaz mo (HYDRODIURIL) 12.5 MG tablet Take 1 tablet (12.5 mg total) by mouth daily. 02/16/2023 Active loratadine (CLARITIN) 10 mg tablet Take 1 tablet (10 mg total) by mouth daily. 03/05/2023 Active metoprolol succinate (TOPROL-XL) 50 MG 24 hr tablet Take 1 tablet (50 mg total) by mouth daily. 04/01/2023 Active Active Problems Problem Noted Date Diagnosed Date Hematoma 04/03/2023 Hematoma of neck, initial encounter 04/03/2023 Social History Tobacco Use Types Packs/Day Years Used Date Smoking Tobacco: Never Passive Smoke Exposure: Past Smokeless Tobacco: Never Tobacco Cessation:Counseling Given: No Alcohol Use Standard Drinks/Week Comments Never 0 (1 standard drink = 0.6 oz pur e alcohol) PRAPARE - Transportation Answer Date Re corded In the past 12 months, has l ack of transportation kept you from medical appointments or from getting medications? No 04/04/2023 Lack of Transportation (Non-Medical) Not on file 04/04/2023 Food Insecurity Answer Date Recorded Food run out past 12 months Not on file 05/31 Food did not last past 12 months Not on file 06/11/2023 Employment Answer Date Recorded Help finding and keeping a job Not on file 0 06/11/2023 Family and Community Support Answer Chan e Recorded Help with Day to Day Activities Not on file 06/11/2023 Feeling Lonely or Isolated Not on file 06/11 Educational Attainment Answer Date Kris rded Speak language other than Albanian at home Not on file 06/11/2023 Want help with school or training Not on file 06/11/2023 Substance Use Answer Date Recorded Used prescription meds for non-medical reasons N ot on file 06/11/2023 Used illegal drugs past 12 months Not on file 06/11/2023 Sex and Gender Information Value Date Recorded Sex Assigned at Not on file Legal Sex Male 1:44 PM CDT Gender Identity Not on file Sexual Orientation Not on file Last Filed Vital Signs Vital Sign Reading Time Taken Comments Blood Pressure 155/77 04/05/2023 1:02 PM EST Pulse 94 04/05/2023 1:15 PM EST Temperature 36.6 C (97.8 F) 04/05/2023 12:00 PM EST Respiratory Rate 21 04/05/2023 1:15 PM EST Oxygen Saturation 98% 04/05/2023 1:15 PM EST Inhaled Oxygen Concentration - - Weight 117 kg (258 lb) 04/03/2023 8:19 PM EDT Height 180.3 cm (5' 10.98 ) 04/05/2023 9:[address] Body Mass Index 36 04/03/2023 8:19 PM EDT Plan of Treatment Not on file Insurance BLUE CROSS/BLUE SHIELD [facility] Member Subscriber Plan / Payer (Ef fective for All Dates) Name:Josias Mullins Relation to Subscriber:Self Name:Josias Mullins A Payer ID:Not on file Group ID:Not on file Type:Not on file Address: [address] CHOICE PLUS Advance Directives For more information, please contact: [phone] * Full Code (Latest Code Status on File) Date Activated Date Inactivated Comments 04/04/2023 9:58 AM 04/05/2023 3:45 PM * Full Code Date Activated Date Inactivated Comments 04/03/2023 10:13 PM 04/04/2023 9:58 AM
--- OUTSIDE RECORDS SUMMARY | 2024-12-14 06:49 | XMS_ITS | Clinical Summary ---
Author Organization [employer] ([place], [place], [place], [place]) Address [address] [place] [address] Care Team Providers Care Ultimate Hoops Trainer Name Role Phone Unavailable Primary Care Provider Unavailabl e Allergies Active Allergy Reactions Criticality Noted Date Comments Levofloxacin Other (See Comments) Medium 04/03/2023 Pt states makes his joints sore. 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, but has never had a problem with [...] Date Kris rded Speak language other than Italian at home Not on file 06/11/2023 Want [...] 04/03/2023 8:19 PM EDT Plan of Treatment Health Maintenance Due Date Last Done Comments CT Colonography 1959 Colonoscopy 1959 Colorectal Cancer Screening 1959 FOBT/FIT 1959 Fit-DNA (Cologuard) 1959 Sigmoidoscopy 1959 Depression Screening (12+) 1971 HIV Screening 10/08/1974 Hepatitis C Screening 10/08/1977 DTAP/TDAP/TD VACCINES (1 - Tdap) 10/08/1978 Lipid Panel 10/08/1994 Pneumococcal 50+ years (1 of 1 - PCV) 10/08/2009 Shingles Vaccine (Zoster) (1 of 2) 10/08/2009 COVID-19 VACCINE (3 - season) 01/30/202405/2020, 03/26/2021 Tobacco Cessation Counseling and Screening (12+) 04/04/2024 04/04/2023 Falls Risk Screening 05/31/2024 Influenza Vaccine (#1) 2025 Respiratory Syncytial Virus (RSV) Adult or (1 - 1-dose 75+ series) 10/08/2034 Insurance BLUE CROSS/BLUE SHIELD [facility] CHOICE PLUS Advance Directives For more information, please contact: [phone] * Full Code (Latest Code Status on File) Date Activated Date Inactivated Comments 04/04/2023 9:58 AM 04/05/2023 3:45 PM * Full Code Date Activated Date Inactivated Comments 04/03/2023 10:13 PM 04/04/2023 9:58 AM
--- OUTSIDE RECORDS SUMMARY | 2024-12-14 06:49 | XMS_ITS | Clinical Summary ---
Author Organization Healthcare Address [address] [place] [address] Care Team Providers Care Top And Seat Cover Fitter Name Role Phone Irais Guardado ENERGY AUDIT ADVISOR Primary Care Provider [phone] Immunizations Immunization Administration Dates Next Due Influenza, Unspecified 03/10/2017,02/14/2017 Family History Medical History Relation Name Comments Conversions - Other Father Patient' s father is Heart attack Father Other cancer Father Other cancer Mother Relation Name Status Comments Father Mother Social History Tobacco Use Types Packs/Day Years Used Date Smoking Tobacco: Former Sex and Gender Information Value Date Recorded Sex Assigned at Not on file Legal Sex Male 7:35 PM EDT Gender Identity Not on file Sexual Orientation Not on file Last Filed Vital Signs Vital Sign Reading Time Taken Comments Blood Pressure 145/85 08/22/2020 10:01 AM EDT Pulse 73 08/22/2020 10:01 AM EDT Temperature 36.6 C (97.9 F) 08/22/2020 10:01 AM EDT Respiratory Rate 16 08/22/2020 10:01 AM EDT Oxygen Saturation - - Inhaled Oxygen Concentration - - Weight 119 kg (262 lb 5.6 oz) 08/22/2020 10:01 A M EDT Height 177.8 cm (5' 10 ) 09/14/2017 1:34 PM EDT Body Mass Index 37.64 09/14/2017 1:34 PM EDT Plan of Treatment Not on file Care Teams Top And Seat Cover Fitter Relationship Specialty Start Date End Date Irais Guardado APRN [address] [place], [place] [address] [id number] PCP - General 10/11/20
--- OUTSIDE RECORDS SUMMARY | 2024-12-14 06:49 | XMS_ITS | Data Portability ---
Author Organization [facility] Address [address] [place] [address] Care Team Providers Care Home Health Rn Name Role Phone [facility] Referring Provider Assessment Encounter Date Assessment Date Assessment LastModified by Organization Details LastModified Time 12/10/2022 12/10/2022 Paresthesia of left upper limb -concern for cervical or thoracic spine abnormality with pain and pop in area with heavy lifting followed by paresthesia of left arm as well as hx of lumbar spine dysfunction -obtaining xray of c-spine and thoracic spine to rule out spinal abnormality -administered steroid shot in office for symptom relief -Also concerned with reports of swelling in left arm, although known seen by me today on exam. Wonder if sensation of swelling is just by product of paresthesia. Regardless, if spinal xray negative for abnormalities, further workup needed to determine possible cause of pain including thoracic mass Obesity -BMI 37 associated with obesity -healthy diet, exercise, and weight loss discussed -education information regarding healthy weight given [email or web address] Not available 12/10/2022 12:52:01 Plan of Treatment Reminders Order Date Submit Date Provider Last Modified By Organization Details Last Modified Time Details Appointments None recorded. Lab venipunctur e 2024 025 cbuckler [facility], [address], [place], [address], 5 10:49:11 PSA, serum or plasma 2022 023 [place] [facility], [address], [place], [address], 3 10:07:39 CBC w/ auto diff 2022 023 [place] [facility], [address], [place], [address], 3 10:07:37 CMP, serum or plasma 2022 023 [place] [facility], [address], [place], [address], 3 10:07:38 lipid panel, serum 2022 023 [place] [facility], [address], [place], [address], 3 10:07:38 noninvasive colorectal cancer DNA + occult blood screening, QL, stool 2022 023 [place] [facility] (Cologuard Orders Only), [address], [address], [place], [address], 3 18:24:45 Referral None recorded. Procedures None recorded. Surgeries None recorded. Imaging XR, lumbar spine 2022 023 [facility] (X-Ray), [address] [place] [address] [address], [place], [address], 3 08:20:22 MRI, lumbar spine, w/o contrast 2022 023 [facility] [address] [place] [address] , [place], [address], 3 11:39:44 XR, cervical spine, 2 or 3 view 2022 023 [facility] (X-Ray), [address], [place], [address], 3 11:47:21 XR, thoracic spine, 2 view - left arm paresthesia preceded by pop in upper thoracic/lo wer cervical spine with heavy lifting 2022 023 [facility] (X-Ray), [address], [place], [address], 3 16:11:24 Medication Orders loratadine 10 mg tablet 2024 025 [facility], [address], [address], 5 14:50:47 amitriptyli ne 50 mg tablet 2024 025 [facility], [address], [address], 5 14:50:46 amitriptyli ne 50 mg tablet 2024 025 [place] [facility]), [address] [place] [address], [address], [place], [place], [id number], 5 14:50:41 Wegovy 0.25 mg/0.5 mL subcutaneou s pen injector 2022 023 [id number], [address] [place], [address], 5 13:58:32 sildenafil (pulmonary hypertensio n) [address] [facility], [facility], [place], [address], 3 09:40:52 dexamethaso ne sodium phosphate 4 mg/mL injection solution 2022 023 [id number], [address], [id number], 08:39:53 Loniaren Arthritis Pain 1 % topical gel 2022 023 [place] [facility] #[id number], [address] [address] [place], [id number], 10:24:51 dexamethaso ne sodium phosphate 4 mg/mL injection solution 2022 023 [facility], [facility], [place], [address], 08:39:53 Patient TargetsNo targets recorded. Patient Instructions Encounter Date Encounter Id Patient Instructions Last Modified By Organization Details Last Modified Time 12/10/2022 [id number] learning about healthy weight [email or web address] Not available 12/10/2022 10:01:42 body mass index: care instructions [email or web address] Not available 12/10/2022 10:01:42 05/25/2023 [id number] learning about healthy weight efryman Not available 05/25/2023 09:40:50 body mass index: care instructions efryman Not available 05/25/2023 09:40:50 Reason for Referral None Reported. Results Created Date Observation Date Name Description Value Unit Range Abnormal Flag Note LastModifiedBy Organization Detail LastModifiedTime 08/16/1908/15/2022 CBC WITH DIFFE RENTI AL/PL ATELE T WBC 5.2 x10e3 /uL 3.4-10 .8 Not Available [facility] ([facility]) [address] [place], [address], 08/15/2022 10:07:37 08/16/19 23 08/15/2022 CBC WITH DIFFE RENTI AL/PL ATELE T RBC 4.96 x10e6 /uL 4.14-5 .80 Not Available [facility] ([facility]) [address] [facility], [place], [address], 08/15/2022 10:07:37 08/16/19 23 08/15/2022 CBC WITH DIFFE RENTI AL/PL ATELE T hemoglobin 15.5 g/dL 13.0-1 7.7 Not Available [facility] ([facility]) [address] [place], [address], 08/15/2022 10:07:37 08/16/19 23 08/15/2022 CBC WITH DIFFE RENTI AL/PL ATELE T hematocrit 44.0 % 37.5-5 1.0 Not Available [facility] ([facility]) [address] [facility], [place], [address], 08/15/2022 10:07:37 08/16/19 23 08/15/2022 CBC WITH DIFFE RENTI AL/PL ATELE T MCV 89 fL 79-97 Not Available [facility] ([facility]) [address] [facility], [place], [address], 08/15/2022 10:07:37 08/16/19 23 08/15/2022 CBC WITH DIFFE RENTI AL/PL ATELE T MCH 31.3 pg 26.6-3 3.0 Not Available [facility] ([facility]) [address] [place], [address], 08/15/2022 10:07:37 08/16/19 23 08/15/2022 CBC WITH DIFFE RENTI AL/PL ATELE T MCHC 35.2 g/dL 31.5-3 5.7 Not Available [facility] ([facility]) [address] [place], [address], 08/15/2022 10:07:37 08/16/19 23 08/15/2022 CBC WITH DIFFE RENTI AL/PL ATELE T RDW 12.4 % 11.6-1 5.4 Not Available [facility] ([facility]) [address] [place], [address], 08/15/2022 10:07:37 08/16/19 23 08/15/2022 CBC WITH DIFFE RENTI AL/PL ATELE T platelets 251 x10e3 /uL 150-45 0 Not Available [facility] ([facility]) [address] [facility], [place], [address], 08/15/2022 10:07:37 08/16/19 23 08/15/2022 CBC WITH DIFFE RENTI AL/PL ATELE T neutrophils 47 % not estab. Not Available [facility] ([facility]) [address] [facility], [place], [address], 08/15/2022 10:07:37 08/16/19 23 08/15/2022 CBC WITH DIFFE RENTI AL/PL ATELE T lymphs 36 % not estab. Not Available [facility] ([facility]) [address] [facility], [place], [address], 08/15/2022 10:07:37 08/16/19 23 08/15/2022 CBC WITH DIFFE RENTI AL/PL ATELE T monocytes 10 % not estab. Not Available [facility] ([facility]) [address] [facility], [place], [address], 08/15/2022 10:07:37 08/16/19 23 08/15/2022 CBC WITH DIFFE RENTI AL/PL ATELE T eos 6 % not estab. Not Available [facility] ([facility]) [address] [facility], [place], [address], 08/15/2022 10:07:37 08/16/19 23 08/15/2022 CBC WITH DIFFE RENTI AL/PL ATELE T basos 1 % not estab. Not Available [facility] ([facility]) [address] [facility], [place], [address], 08/15/2022 10:07:37 08/16/19 23 08/15/2022 CBC WITH DIFFE RENTI AL/PL ATELE T immature cells TAR ROOFER Not Available [facility] ([facility]) [address] [facility], [place], [address], 08/15/2022 10:07:37 08/16/19 23 08/15/2022 CBC WITH DIFFE RENTI AL/PL ATELE T neutrophils (absolute) 2.5 x10e3 /uL 1.4-7. 0 Not Available [facility] ([facility]) [address] [facility], [place], [address], 08/15/2022 10:07:37 08/16/19 23 08/15/2022 CBC WITH DIFFE RENTI AL/PL ATELE T lymphs (absolute) 1.9 x10e3 /uL 0.7-3. 1 Not Available [facility] ([facility]) [address] [facility], [place], [address], 08/15/2022 10:07:37 08/16/19 23 08/15/2022 CBC WITH DIFFE RENTI AL/PL ATELE T monocytes(ab solute) 0.5 x10e3 /uL 0.1-0. 9 Not Available [facility] ([facility]) [address] [facility], [place], [address], 08/15/2022 10:07:37 08/16/19 23 08/15/2022 CBC WITH DIFFE RENTI AL/PL ATELE T eos (absolute) 0.3 x10e3 /uL 0.0-0. 4 Not Available [facility] ([facility]) [address] [facility], [place], [address], 08/15/2022 10:07:37 08/16/19 23 08/15/2022 CBC WITH DIFFE RENTI AL/PL ATELE T baso (absolute) 0.0 x10e3 /uL 0.0-0. 2 Not Available [facility] ([facility]) [address] [facility], [place], [address], 08/15/2022 10:07:37 08/16/19 23 08/15/2022 CBC WITH DIFFE RENTI AL/PL ATELE T immature granulocytes 0 % not estab. Not Available [facility] ([facility]) [address] [facility], [place], [address], 08/15/2022 10:07:37 08/16/19 23 08/15/2022 CBC WITH DIFFE RENTI AL/PL ATELE T immature grans (abs) 0.0 x10e3 /uL 0.0-0. 1 Not Available [facility] ([facility]) [address] [facility], [place], [address], 08/15/2022 10:07:37 08/16/19 23 08/15/2022 CBC WITH DIFFE RENTI AL/PL ATELE T NRBC TAR ROOFER Not Available [facility] ([facility]) [address] [facility], [place], [address], 08/15/2022 10:07:37 08/16/19 23 08/15/2022 CBC WITH DIFFE RENTI AL/PL ATELE T hematology comments: TAR ROOFER Not Available [facility] ([facility]) [address] [facility], [place], [address], 08/15/2022 10:07:37 08/16/19 23 08/15/2022 COMP. METAB OLIC PANEL (14) glucose 91 mg/dL 70-99 Not Available [facility] ([facility]) [address] [facility], [place], [address], 08/15/2022 10:07:38 08/16/19 23 08/15/2022 COMP. METAB OLIC PANEL (14) BUN 16 mg/dL 8-27 Not Available [facility] ([facility]) [address] [facility], [place], [address], 08/15/2022 10:07:38 08/16/19 23 08/15/2022 COMP. METAB OLIC PANEL (14) creatinine 0.95 mg/dL 0.76-1 .27 Not Available [facility] ([facility]) [address] [facility], [place], [address], 08/15/2022 10:07:38 08/16/19 23 08/15/2022 COMP. METAB OLIC PANEL (14) eGFR 90 mL/mi n/1.7 3 >59 Not Available [facility] ([facility]) [address] [facility], [place], [address], 08/15/2022 10:07:38 08/16/19 23 08/15/2022 COMP. METAB OLIC PANEL (14) BUN/creatini ne ratio 17 10-24 Not Available [facility] ([facility]) [address] [facility], [place], [address], 08/15/2022 10:07:38 08/16/19 23 08/15/2022 COMP. METAB OLIC PANEL (14) sodium 139 mmol/ L 134-14 4 Not Available [facility] ([facility]) [address] [facility], [place], [address], 08/15/2022 10:07:38 08/16/19 23 08/15/2022 COMP. METAB OLIC PANEL (14) potassium 4.2 mmol/ L 3.5-5. 2 Not Available [facility] ([facility]) [address] [facility], [place], [address], 08/15/2022 10:07:38 08/16/19 23 08/15/2022 COMP. METAB OLIC PANEL (14) chloride 102 mmol/ L 96-106 Not Available [facility] ([facility]) [address] [facility], [place], [address], 08/15/2022 10:07:38 08/16/19 23 08/15/2022 COMP. METAB OLIC PANEL (14) carbon dioxide, total 22 mmol/ L 20-29 Not Available [facility] ([facility]) [address] [facility], [place], [address], 08/15/2022 10:07:38 08/16/19 23 08/15/2022 COMP. METAB OLIC PANEL (14) calcium 9.1 mg/dL 8.6-10 .2 Not Available [facility] ([facility]) [address] [facility], [place], [address], 08/15/2022 10:07:38 08/16/19 23 08/15/2022 COMP. METAB OLIC PANEL (14) protein, total 7.0 g/dL 6.0-8. 5 Not Available [facility] ([facility]) [address] [facility], [place], [address], 08/15/2022 10:07:38 08/16/19 23 08/15/2022 COMP. METAB OLIC PANEL (14) albumin 4.4 g/dL 3.8-4. 8 Not Available [facility] ([facility]) [address], [place], [address], 08/15/2022 10:07:38 08/16/19 23 08/15/2022 COMP. METAB OLIC PANEL (14) globulin, total 2.6 g/dL 1.5-4. 5 Not Available [facility] ([facility]) [address] [facility] [place], [address], 08/15/2022 10:07:38 08/16/19 23 08/15/2022 COMP. METAB OLIC PANEL (14) A/G ratio 1.7 1.2-2. 2 Not Available [facility] ([facility]) [address] [facility] [place] [place], [address], 08/15/2022 10:07:38 08/16/19 23 08/15/2022 COMP. METAB OLIC PANEL (14) bilirubin, total 0.5 mg/dL 0.0-1. 2 Not Available [facility] ([facility]) [address] [facility], [place], [address], 08/15/2022 10:07:38 08/16/19 23 08/15/2022 COMP. METAB OLIC PANEL (14) alkaline phosphatase 94 IU/L 44-121 Not Available [facility]) [address] [place], [address], 08/15/2022 10:07:38 08/16/19 23 08/15/2022 COMP. METAB OLIC PANEL (14) AST (SGOT) 18 IU/L 0-40 Not Available [facility] ([facility]) [address] [place], [address], 08/15/2022 10:07:38 08/16/19 23 08/15/2022 COMP. METAB OLIC PANEL (14) ALT (SGPT) 20 IU/L 0-44 Not Available [facility] ([facility]) [address] [place], [address], 08/15/2022 10:07:38 08/16/19 23 08/15/2022 LIPID PANEL cholesterol, total 175 mg/dL 100-19 9 Not Available [facility] ([facility]) [address] [place], [address], 08/15/2022 10:07:38 08/16/19 23 08/15/2022 LIPID PANEL triglyceride s 97 mg/dL 0-149 Not Available [facility] ([facility]) [address] [place], [address], 08/15/2022 10:07:38 08/16/19 23 08/15/2022 LIPID PANEL HDL cholesterol 34 mg/dL >39 below low normal Not Available [facility] ([facility]) [address] [place], [address], 08/15/2022 10:07:38 08/16/19 23 08/15/2022 LIPID PANEL VLDL cholesterol tre 18 mg/dL 5-40 Not Available [facility] ([facility]) [address] [place], [address], 08/15/2022 10:07:38 08/16/19 23 08/15/2022 LIPID PANEL LDL chol calc ([facility]) 123 mg/dL 0-99 above high normal Not Available [facility] ([facility]) [address] [facility], [place], [address], 08/15/2022 10:07:38 08/16/19 23 08/15/2022 LIPID PANEL comment: TAR ROOFER Not Available [facility] ([facility]) [address] [facility], [place], [address], 08/15/2022 10:07:38 08/16/19 23 08/15/2022 PSA TOTAL (REFL EX TO FREE) prostate specific Ag 0.5 NG/mL 0.0-4. 0 Cosmo ECLIA metho dolog y. Accor ding to the Ameri can Urolo gical Assoc iatio n, Serum PSA shoul d decre ase and remai n at undet ectab le level s after radic al prost atect leela. The AUA defin es bioch emica l recur rence as an initi al PSA value 0.2 ng/mL or great er follo wed by a subse quent confi rmato ry PSA value 0.2 ng/mL or great er. Value s obtai nico with diffe rent assay metho ds or kits canno t be used inter craft eably . Resul ts canno t be inter prete d as absol rubi evide nce of the prese nce or absen ce of [facility] se. Not Available [facility] ([facility]) [address] [facility], [place], [address], 08/15/2022 10:07:39 08/16/19 23 08/15/2022 PSA TOTAL (REFL EX TO FREE) reflex criteria Commen t The perce nt free PSA is perfo rmed on a refle x basis only when the total PSA is betwe en 4.0 and 10.0 ng/mL . Not Available [facility] ([facility]) [address] [facility], [place], [address], 08/15/2022 10:07:39 08/16/19 23 08/15/2022 PLEAS E NOTE please note Commen t The date and/o r time of colle ction was not indic ated on the requi sitio n as requi red by state and [place] law. The date of recei pt of the speci men was used as the colle ction date if not suppl ied. Not Available [facility] ([facility]) [address] [facility], [place], [address], 08/15/2022 10:07:39 08/29/19 23 08/28/2022 COLOG UARD cologuard result reportable Negati ve negati ve NEGAT KENDRICK TEST RESUL T. A negat kendrick Colog uard resul t indic ates a low likel ihood that a color ectal cance r (CRC) or advan nikky adeno ma (hamlet omato us polyp s with more advan nikky pre-m align ant featu res) is prese nt. The chanc e that a perso n with a negat kendrick Colog uard test has a color ectal cance r is less than 1 in 1500 (nega tive predi ctive value >99.9 %) or has an advan nikky adeno ma is less than 5.3% (nega tive predi ctive value 94.7% ). These data are based on a prosp ectiv e cross -sect ional study of ,00 0 indiv idual s at [facility] risk for color ectal cance r who were scree nico with both Colog uard and colon oscop y. (Gordon Graves et al, N Engl J Med 2014; 370(1 4):12 86-12 97) The kailey l value (refe rence range ) for this assay is negat kendrick. COLOG UARD RE-SC REENI NG RECOM MENDA TION: Perio dic color ectal cance r scree tristan is an impor tant part of preve ntive healt hcare for asymp tomat ic indiv idual s at [facility] risk for color ectal cance r. Follo wing a negat kendrick Colog uard resul t, the Ameri can Cance r Socie ty and U.S. Multi -Soci ety Task Force scree tirstan guide lines recom mend a Colog uard re-sc natacha ng inter geri of 3 years . Refer ences : Christopher norman Cance an Socie ty Guide line for Color ectal Cance r Scree tristan: https ://floresita w.can cer.o rg/ca ncer/ colon -rect al-ca ncer/ detec tion- diagn osis- stagi ng/ac s-rec ommen datio ns.ht ml.; Diego NEW, Jenni gauthier CR, Bradley dobbs JK, Color ectal Cance r Scree tristan: Recom menda tions for Physi cians and Patie nts from the U.S. Multi -Soci ety Task Force on Color ectal Cance r Scree tristan , Heather guerreroog y 2017; 112:1 016-1 030. TEST DESCR IPTIO N: [place] site algor ithmi c alex sis of stool DNA-b iokyra kerlisa with hemog lobin immun oassa y. Quant itati ve value s of indiv idual bioma rkers are not repor table and are not assoc iated with indiv idual bioma rker resul t refer ence range s. Colog uard is inten ded for color ectal cance r scree tristan of adult s of eithe r sex, 45 years or older , who are at [facility] for color ectal cance r (CRC) . Colog uard has been appro feliciano for use by the U.S. FDA. The perfo rmanc e of Colog uard was estab lishe d in a cross secti onal study of [facility] adult s aged 50-84 . Colog uard perfo rmanc e in patie nts ages 45 to 49 years was estim ated by sub-g roup alex sis of near- age group s. Colon oscop ies perfo rmed for a posit kendrick resul t may find as the most clini jatinder signi fican t lesio n: color ectal cance r [4.0% ], advan nikky adeno ma (incl uding sessi le massiel dawna polyp s great er than or equal to 1cm diame ter) [20%] or non- advan nikky adeno ma [31%] ; or no color ectal neopl liliane [45%] . These estim ates are deriv ed from a prosp ectiv e cross -sect ional scree tristan study of 0 indiv idual s at [facility] risk for color ectal cance r who were scree nico with both Colog uard and colon oscop y. (Gordon Graves et al, N Engl J Med 2014; 370(1 4):12 86-12 97.) Colog uard may produ ce a false negat kendrick or false posit kendrick resul t (no color ectal cance r or preca ncero us polyp prese nt at colon oscop y follo w up). A negat kendrick Colog uard test resul t does not guara ntee the absen ce of CRC or advan nikky adeno ma (pre- cance r). The curre nt Colog uard scree tristan inter geri is every 3 years . (Amer ican Cance r Socie ty and U.S. Multi -Soci ety Task Force ). Colog uard perfo rmanc e data in a 0 patie nt pivot al study using colon oscop y as the refer ence metho d can be acces sed at the follo wing locat ion: www.e xactl abs.c om/re kailey . Addit ional descr iptio n of the Colog uard test proce ss, warni ngs and preca ution s can be found at www.c ologu divina.c om. Not Available [facility] (Cologuard Orders Only) [address], [place], [address], 09/04/2022 18:24:45 11/29/19 24 11/29/2023 HbA1c (hemo globi n A1c), blood A1C 5.3 Not Available [facility] [address], [place], [address], 11/29/2023 15:02:49 08/23/19 25 08/23/2024 VITAM IN B12+F OLATE vitamin B12 618 pg/mL 232-12 45 normal Not Available [facility] ([facility]) [address] [facility], [place], [address], 08/23/2024 12:07:51 08/23/19 25 08/23/2024 VITAM IN B12+F OLATE folate (folic acid), serum 12.6 NG/mL >3.0 normal A serum folat e valorie ntrat ion of less than 3.1 ng/mL is consi dered to repre sent clini tre defic iency . Not Available [facility] ([facility]) [address] [facility], [place], [address], 08/23/2024 12:07:51 08/23/1908/23/2024 CBC WITH DIFFE RENTI AL/PL ATELE T WBC 5.3 x10e3 /uL 3.4-10 .8 normal Not Available [facility] ([facility]) [address] [facility], [place], [address], 08/23/2024 12:07:51 08/23/19 25 08/23/2024 CBC WITH DIFFE RENTI AL/PL ATELE T RBC 5.00 x10e6 /uL 4.14-5 .80 normal Not Available [facility] ([facility]) [address] [place], [address], 08/23/2024 12:07:51 08/23/1908/23/2024 CBC WITH DIFFE RENTI AL/PL ATELE T hemoglobin 15.7 g/dL 13.0-1 7.7 normal Not Available [facility] ([facility]) [address] [place], [address], 08/23/2024 12:07:51 08/23/1908/23/2024 CBC WITH DIFFE RENTI AL/PL ATELE T hematocrit 46.2 % 37.5-5 1.0 normal Not Available [facility] ([facility]) [address] [place], [address], 08/23/2024 12:07:51 08/23/1908/23/2024 CBC WITH DIFFE RENTI AL/PL ATELE T MCV 92 fL 79-97 normal Not Available [facility] ([facility]) [address] [facility], [place], [address], 08/23/2024 12:07:51 08/23/1908/23/2024 CBC WITH DIFFE RENTI AL/PL ATELE T MCH 31.4 pg 26.6-3 3.0 normal Not Available [facility] ([facility]) [address] [facility], [place], [address], 08/23/2024 12:07:51 08/23/1908/23/2024 CBC WITH DIFFE RENTI AL/PL ATELE T MCHC 34.0 g/dL 31.5-3 5.7 normal Not Available [facility] ([facility]) [address] [facility], [place], [address], 08/23/2024 12:07:51 08/23/1908/23/2024 CBC WITH DIFFE RENTI AL/PL ATELE T RDW 12.1 % 11.6-1 5.4 Not Available [facility] ([facility]) [address] [place], [address], 08/23/2024 12:07:51 08/23/1908/23/2024 CBC WITH DIFFE RENTI AL/PL ATELE T platelets 234 x10e3 /uL 150-45 0 normal Not Available [facility] ([facility]) [address] [place], [address], 08/23/2024 12:07:51 08/23/19 25 08/23/2024 CBC WITH DIFFE RENTI AL/PL ATELE T neutrophils 50 % not estab. normal Not Available [facility] ([facility]) [address] [place], [address], 08/23/2024 12:07:51 08/23/19 25 08/23/2024 CBC WITH DIFFE RENTI AL/PL ATELE T lymphs 34 % not estab. normal Not Available [facility] ([facility]) [address] [facility], [place], [address], 08/23/2024 12:07:51 08/23/19 25 08/23/2024 CBC WITH DIFFE RENTI AL/PL ATELE T monocytes 9 % not estab. normal Not Available [facility] ([facility]) [address] [facility], [place], [address], 08/23/2024 12:07:51 08/23/1908/23/2024 CBC WITH DIFFE RENTI AL/PL ATELE T eos 6 % not estab. normal Not Available [facility] ([facility]) [address] [place], [address], 08/23/2024 12:07:51 08/23/19 25 08/23/2024 CBC WITH DIFFE RENTI AL/PL ATELE T basos 1 % not estab. normal Not Available [facility] ([facility]) [address] [place], [place], [address], 08/23/2024 12:07:51 08/23/19 25 08/23/2024 CBC WITH DIFFE RENTI AL/PL ATELE T immature cells TAR ROOFER Not Available [facility] ([facility]) [address] [place], [address], 08/23/2024 12:07:51 08/23/19 25 08/23/2024 CBC WITH DIFFE RENTI AL/PL ATELE T neutrophils (absolute) 2.6 x10e3 /uL 1.4-7. 0 normal Not Available [facility] ([facility]) [address] [place], [address], 08/23/2024 12:07:51 08/23/19 25 08/23/2024 CBC WITH DIFFE RENTI AL/PL ATELE T lymphs (absolute) 1.8 x10e3 /uL 0.7-3. 1 normal Not Available [facility] ([facility]) [address] [place], [address], 08/23/2024 12:07:51 08/23/19 25 08/23/2024 CBC WITH DIFFE RENTI AL/PL ATELE T monocytes(ab solute) 0.5 x10e3 /uL 0.1-0. 9 normal Not Available [facility] ([facility]) [address] [place], [address], 08/23/2024 12:07:51 08/23/1908/23/2024 CBC WITH DIFFE RENTI AL/PL ATELE T eos (absolute) 0.3 x10e3 /uL 0.0-0. 4 normal Not Available [facility] ([facility]) [address] [place], [address], 08/23/2024 12:07:51 08/23/19 25 08/23/2024 CBC WITH DIFFE RENTI AL/PL ATELE T baso (absolute) 0.0 x10e3 /uL 0.0-0. 2 normal Not Available [facility] ([facility]) [address] [place], [address], 08/23/2024 12:07:51 08/23/1908/23/2024 CBC WITH DIFFE RENTI AL/PL ATELE T immature granulocytes 0 % not estab. Not Available [facility] ([facility]) [address] [place], [address], 08/23/2024 12:07:51 08/23/19 25 08/23/2024 CBC WITH DIFFE RENTI AL/PL ATELE T immature grans (abs) 0.0 x10e3 /uL 0.0-0. 1 Not Available [facility] ([facility]) [address] [place], [address], 08/23/2024 12:07:51 08/23/19 25 08/23/2024 CBC WITH DIFFE RENTI AL/PL ATELE T NRBC TAR ROOFER Not Available [facility] ([facility]) [address] [facility], [place], [address], 08/23/2024 12:07:51 08/23/19 25 08/23/2024 CBC WITH DIFFE RENTI AL/PL ATELE T hematology comments: TAR ROOFER Not Available [facility] ([facility]) [address] [facility], [place], [address], 08/23/2024 12:07:51 08/23/19 25 08/23/2024 COMP. METAB OLIC PANEL (14) glucose 83 mg/dL 70-99 normal Not Available [facility] ([facility]) [address] [place], [address], 08/23/2024 12:07:52 08/23/19 25 08/23/2024 COMP. METAB OLIC PANEL (14) BUN 13 mg/dL 8-27 normal Not Available [facility] ([facility]) [address] [place], [address], 08/23/2024 12:07:52 08/23/19 25 08/23/2024 COMP. METAB OLIC PANEL (14) creatinine 0.95 mg/dL 0.76-1 .27 normal Not Available [facility] ([facility]) [address] [place], [address], 08/23/2024 12:07:52 08/23/19 25 08/23/2024 COMP. METAB OLIC PANEL (14) eGFR 89 mL/mi n/1.7 3 >59 normal Not Available [facility] ([facility]) [address] [place], [address], 08/23/2024 12:07:52 08/23/19 25 08/23/2024 COMP. METAB OLIC PANEL (14) BUN/creatini ne ratio 14 10-24 normal Not Available [facility] ([facility]) [address] [facility] [place] [place], [address], 08/23/2024 12:07:52 08/23/19 25 08/23/2024 COMP. METAB OLIC PANEL (14) sodium 140 mmol/ L 134-14 4 normal Not Available [facility] ([facility]) [address] [facility] [place] [place], [address], 08/23/2024 12:07:52 08/23/19 25 08/23/2024 COMP. METAB OLIC PANEL (14) potassium 4.2 mmol/ L 3.5-5. 2 normal Not Available [facility] ([facility]) [address] [facility] [place] [place], [address], 08/23/2024 12:07:52 08/23/19 25 08/23/2024 COMP. METAB OLIC PANEL (14) chloride 100 mmol/ L 96-106 normal Not Available [facility] ([facility]) [address] [facility] [place] [place], [address], 08/23/2024 12:07:52 08/23/19 25 08/23/2024 COMP. METAB OLIC PANEL (14) carbon dioxide, total 26 mmol/ L 20-29 normal Not Available [facility] ([facility]) [address] [facility] [place] [place], [address], 08/23/2024 12:07:52 08/23/19 25 08/23/2024 COMP. METAB OLIC PANEL (14) calcium 9.0 mg/dL 8.6-10 .2 normal Not Available [facility] ([facility]) [address] [facility] [place] [place], [address], 08/23/2024 12:07:52 08/23/19 25 08/23/2024 COMP. METAB OLIC PANEL (14) protein, total 7.1 g/dL 6.0-8. 5 normal Not Available [facility] ([facility]) [address] [place], [address], 08/23/2024 12:07:52 08/23/19 25 08/23/2024 COMP. METAB OLIC PANEL (14) albumin 4.4 g/dL 3.9-4. 9 normal Not Available [facility] ([facility]) [address] [place], [address], 08/23/2024 12:07:52 08/23/19 25 08/23/2024 COMP. METAB OLIC PANEL (14) globulin, total 2.7 g/dL 1.5-4. 5 Not Available [facility] ([facility]) [address] [place], [address], 08/23/2024 12:07:52 08/23/19 25 08/23/2024 COMP. METAB OLIC PANEL (14) bilirubin, total 0.6 mg/dL 0.0-1. 2 normal Not Available [facility] ([facility]) [address] [place], [address], 08/23/2024 12:07:52 08/23/19 25 08/23/2024 COMP. METAB OLIC PANEL (14) alkaline phosphatase 108 IU/L 44-121 normal Not Available [facility] ([facility]) [address] [facility] [place], [address], 08/23/2024 12:07:52 08/23/19 25 08/23/2024 COMP. METAB OLIC PANEL (14) AST (SGOT) 18 IU/L 0-40 normal Not Available [facility] ([facility]) [address] [facility] [place], [address], 08/23/2024 12:07:52 08/23/19 25 08/23/2024 COMP. METAB OLIC PANEL (14) ALT (SGPT) 18 IU/L 0-44 normal Not Available [facility] ([facility]) [address] [facility] [place] [place], [address], 08/23/2024 12:07:52 08/23/19 25 08/23/2024 LIPID PANEL cholesterol, total 173 mg/dL 100-19 9 normal Not Available [facility] ([facility]) [address] [place], [address], 08/23/2024 12:07:53 08/23/19 25 08/23/2024 LIPID PANEL triglyceride s 122 mg/dL 0-149 normal Not Available [facility] ([facility]) [address] [place], [address], 08/23/2024 12:07:53 08/23/19 25 08/23/2024 LIPID PANEL HDL cholesterol 34 mg/dL >39 below low normal Not Available [facility] ([facility]) [address] [place], [address], 08/23/2024 12:07:53 08/23/19 25 08/23/2024 LIPID PANEL VLDL cholesterol tre 22 mg/dL 5-40 Not Available [facility] ([facility]) [address] [place], [address], 08/23/2024 12:07:53 08/23/19 25 08/23/2024 LIPID PANEL LDL chol calc ([facility]) 117 mg/dL 0-99 above high normal Not Available [facility] ([facility]) [address] [place], [address], 08/23/2024 12:07:53 08/23/19 25 08/23/2024 LIPID PANEL LDL calc comment: TAR ROOFER Not Available [facility] ([facility]) [address] [place], [address], 08/23/2024 12:07:53 08/23/19 25 08/23/2024 PSA TOTAL +% FREE prostate specific Ag 0.8 NG/mL 0.0-4. 0 normal Cosmo ECLIA metho dolog y. Accor ding to the Ameri can [employer] g[employer] iatio n, Serum PSA shoul d decre ase and remai n at undet ectab le level s after radic al prost atect leela. The AUA defin es bioch emica l recur rence as an initi al PSA value 0.2 ng/mL or great er follo wed by a subse quent confi rmato ry PSA value 0.2 ng/mL or great er. Value s obtai nico with diffe rent assay metho ds or kits canno t be used inter craft eably . Resul ts canno t be inter prete d as absol rubi evide nce of the prese nce or absen ce of lyn fuentes se. Not Available [facility] ([facility]) [address] [facility], [place], [address], 08/23/2024 12:07:53 08/23/1908/23/2024 PSA TOTAL +% FREE PSA, free 0.25 NG/mL n/a Cosmo ECLIA metho dolog y. Not Available [facility] ([facility]) [address] [facility], [place], [address], 08/23/2024 12:07:53 08/23/1908/23/2024 PSA TOTAL +% FREE % free PSA 31.3 % The table below lists the proba bilit y of prost ate cance r for men with non-s uspic ious PEYTON resul ts and total PSA betwe en 4 and 10 ng/mL , by patie nt age (Tiffany loaiza et al, TEE 1998, 279:1 542). % Free PSA 50-64 yr 65-75 yr 0.00- 10.00 % 56% 55% 10.01 -15.0 0% 24% 35% 15.01 -20.0 0% 17% 23% 20.01 -25.0 0% 10% 20% >25.0 0% 5% 9% Pleas e note: July sanon al did not make speci fic recom menda tions regar ding the use of perce nt free PSA for any other popul ation of men. Not Available [facility] ([facility]) [address], [place], [address], 08/23/2024 12:07:53 12/11/19 23 12/10/2022 XR, cervi tre spine , 2 or 3 view No observ ation record ed. [facility] (X-Ray) [address], [place], [address], 12/14/2022 11:47:21 12/11/19 23 12/10/2022 XR, thora cic spine , 2 view No observ ation record ed. [facility] [address], [place], [address], 12/11/2022 13:29:11 12/23/19 23 12/22/2022 MRI, cervi tre spine , w/o contr ast No observ ation record ed. [facility] [address], [place], [address], 12/28/2022 08:56:09 05/26/20 23 05/25/2023 XR, lumba r spine No observ ation record ed. [facility] [address], [place], [address], 05/28/2023 10:51:10 05/28/20 23 05/28/2023 MRI, lumba r spine , w/o contr ast No observ ation record ed. [facility] (Centralized Scheduling) [address] [place] [address] , [place], [address], 06/01/2023 16:00:03 05/28/20 23 05/28/2023 MRI, lumba r spine , w/o contr ast [facility] Name: Mouna HERNADEZ [address] [place] [address] Drive Phys: [place] [address] : 1960 Age: 62 Sex: M Acct: [id number] Loc: TorMRI PHONE #: Exam Date: 2022 Status : REG CLI FAX #: [phone] Rad# [id number] Unit# [id number] Admit Date: 2022 EXAMS: CPT CODE: [id number] MRI LUMBAR SPINE W/O CONT 26322 MRI OF THE LUMBAR SPINE WITHOU T CONTRA ST, 2022: CLINIC AL HISTOR Y: Low back pain and left lower extrem ity radicu lopath y for a year COMPAR MICHAEL: None. TECHNI QUE: Sagitt al and axial T1 and T2-julio ghted images as well as ambrocio l T2 and sagitt al STIR images of the lumbar spine were obtain ed withou t the use of intrav enous contra st. FINDIN GS: The marrow signal is age-ap propri ate. There are modera te endpla te reacti ve change s at L2-3 and L5-S1. The verteb ral body height s are within normal limits . There is straig htenin g of the lumbar lordos is with grade 1 retrol isthes is of L5 on S1. There is mild dextro scolio sis of the lumbar spine. The conus is not studie d in detail , termin ating at L1-2. There is disc desicc ation throug hout the visual ized spine. There is loss of disc space height , mild at T12-L1 and L2-3, modera te at L4-5, and severe at L3-4 and L5-S1 At L5-S1, there is a disc bulge, right latera l disc osteop hyte comple x, and bilate ral facet arthro katherin. In associ ation with the retrol isthes is, these findin gs result in modera te to severe right and modera te left forami nal narrow ing withou t spinal stenos is. At L4-5, there is modera te right facet arthro katherin, a disc bulge, and a right latera l disc osteop hyte comple x. These findin gs result in modera te bilate ral forami nal narrow ing, right greate r than left. There is no spinal stenos is At L3-4, there is a mild bulge and cognos report developer ior latera l disc osteop hyte comple xes result ing in modera te bilate ral forami nal narrow ing withou t spinal stenos is At L2-3, there is mild left facet arthro katherin, a disc bulge, and latera l disc osteop hyte comple xes. These findin gs result in modera te to severe left forami nal narrow ing and mild right forami nal narrow ing withou t spinal stenos is At L1-2, there is left ligame ntum flavum hypert rophy, mild left facet arthro katherin, a disc bulge, and latera l disc osteop hyte comple xes. These findin gs result in mild left forami nal narrow ing withou t spinal PAGE 1 Signed Report (MICHELLE NUED) [facility] Name: Mouna HERNADEZ [employer] Phys: Marisol Guardado [place]N [facility] [place] [address] : 1960 Age: 62 Sex: M Acct: [id number] Loc: G.MRI PHONE #: Exam Date: 2022 Status : REG CLI FAX #: Rad# [id number] Unit# [id number] Admit Date: 2022 EXAMS: CPT CODE: [id number] MRI LUMBAR SPINE W/O CONT 02506 stenos is. At T12-L1 , there is a disc bulge and a left parace ntral disc protru martinez measur ing 4 mm AP withou t signif icant spinal stenos is or forami nal narrow ing IMPRES MARTINEZ: 1. Mild dextro scolio sis of the lumbar spine and Grade 1 retrol isthes is of L5 on S1 withou t spinal stenos is 2. Mild left forami nal narrow ing at L1-2, multif actori al in nature 3. Modera te to severe left forami nal narrow ing and mild right forami nal narrow ing at L2-3, multif actori al in nature 4. Modera te bilate ral forami nal narrow ing at L3-4 second chester to a disc bulge and cognos report developer ior latera l disc osteop hyte comple xes 5. Modera te bilate ral forami nal narrow ing at L4-5, right greate r than left, multif actori al in nature 6. Modera te to severe right forami nal narrow ing and modera te left forami nal narrow ing at L5-S1, multif actori al in nature Electr onical ly Signed by JULIOCESAR MUNOZ MD on 2022 at 1134 Report ed and signed by: JULIOCESAR MUNOZ MD CC: Dani Guardado APRN Dictat ed Date/T ghulam: 2022 (1134) Techno logist : JOSE JAIME RT(R)( M)(CT) (MR) Transc ribed Date/T ghulam: 2022 (1134) Transc riptio nist: DR.HAG FUNMI Vazquez onic Signat ure Date/T ghulam: 2022 (1134) Printe d Date/T ghulam: 2022 (1138) BATCH NO: N/A PAGE 2 Signed Report CC'ed Logic: Orderi ng Provid er: MAYO Larkin Attend ing Provid er: MAYO Larkin Referr ing Provid er: MAYO Larkin Consul ting Provid er: MAYO Larkin [address] [place], [address], 06/01/2023 16:00:03 Result Notes Documentation Provider Name and Address Organization Details Recorded Time Mri, Lumbar Spine, W/o Contrast : [facility] Name: AYDEE HERNADEZ [address] [place] [address] Phys: [place] [address] : 1960 Age: 62 Sex: M Acct: [id number] Loc: Ashley.MRI PHONE #: Exam Date: 05/28/2023 Status: REG CLI FAX #: Rad# [id number] Unit# [id number] Admit Date: 05/28/2023 EXAMS: CPT CODE: [id number] MRI LUMBAR SPINE W/O CONT 99245 MRI OF THE LUMBAR SPINE WITHOUT CONTRAST, 05/28/2023: CLINICAL HISTORY: Low back pain and left lower extremity radiculopathy for a year COMPARISON: None. TECHNIQUE: Sagittal and axial T1 and T2-weighted images as well as coronal T2 and sagittal STIR images of the lumbar spine were obtained without the use of intravenous contrast. FINDINGS: The marrow signal is age-appropriate. There are moderate endplate reactive changes at L2-3 and L5-S1. The vertebral body heights are within normal limits. There is straightening of the lumbar lordosis with grade 1 retrolisthesis of L5 on S1. There is mild dextroscoliosis of the lumbar spine. The conus is not studied in detail, terminating at L1-2. There is disc desiccation throughout the visualized spine. There is loss of disc space height, mild at T12-L1 and L2-3, moderate at L4-5, and severe at L3-4 and L5-S1 At L5-S1, there is a disc bulge, right lateral disc osteophyte complex, and bilateral facet arthropathy. In association with the retrolisthesis, these findings result in moderate to severe right and moderate left foraminal narrowing without spinal stenosis. At L4-5, there is moderate right facet arthropathy, a disc bulge, and a right lateral disc osteophyte complex. These findings result in moderate bilateral foraminal narrowing, right greater than left. There is no spinal stenosis At L3-4, there is a mild bulge and posterior lateral disc osteophyte complexes resulting in moderate bilateral foraminal narrowing without spinal stenosis At L2-3, there is mild left facet arthropathy, a disc bulge, and lateral disc osteophyte complexes. These findings result in moderate to severe left foraminal narrowing and mild right foraminal narrowing without spinal stenosis At L1-2, there is left ligamentum flavum hypertrophy, mild left facet arthropathy, a disc bulge, and lateral disc osteophyte complexes. These findings result in mild left foraminal narrowing without spinal PAGE 1 Signed Report (CONTINUED) [facility] Name: AYDEE HERNADEZ [address] [place] [address] Phys: [place] [address] : 1960 Age: 62 Sex: M Acct: [id number] Loc: G.MRI PHONE #: Exam Date: 05/28/2023 Status: REG CLI FAX #: Rad# [id number] Unit# [id number] Admit Date: 05/28/2023 EXAMS: CPT CODE: [id number] MRI LUMBAR SPINE W/O CONT 60524 stenosis. At T12-L1, there is a disc bulge and a left paracentral disc protrusion measuring 4 mm AP without significant spinal stenosis or foraminal narrowing IMPRESSION: 1. Mild dextroscoliosis of the lumbar spine and Grade 1 retrolisthesis of L5 on S1 without spinal stenosis 2. Mild left foraminal narrowing at L1-2, multifactorial in nature 3. Moderate to severe left foraminal narrowing and mild right foraminal narrowing at L2-3, multifactorial in nature 4. Moderate bilateral foraminal narrowing at L3-4 secondary to a disc bulge and posterior lateral disc osteophyte complexes 5. Moderate bilateral foraminal narrowing at L4-5, right greater than left, multifactorial in nature 6. Moderate to severe right foraminal narrowing and moderate left foraminal narrowing at L5-S1, multifactorial in nature at 1134 Reported and signed by: DEO TORRES MD CC: Irais Guardado APRN Dictated Date/Time: 05/28/2023 (1134) Technologist: JOSE JAIME RT(R)(M)(CT)(MR) Transcribed Date/Time: 05/28/2023 (1134) Infection Control Preventionist: Electronic Signature Date/Time: 05/28/2023 (1134) Printed Date/Time: 05/28/2023 (1138) BATCH NO: N/A PAGE 2 Signed Report CC'ed Logic: Ordering Provider: MAYO MORALES Attending Provider: MAYO MORALES Referring Provider: MAYO MORALES Consulting Provider: MAYO Ruff null, [place] - [facility] 06/01/2023 16:00:03 Problems Name Problem SNOMED Code Status Onset Date Resolution Date Notes Provider Name and Address Organization Details Recorded Time Hypertensi ve disorder 11799028 Active Shelby Connors null, [place] - [facility] 2 17:06:08 Erectile dysfunctio n 578246123 Active 2022 Renanmanasashley LambaugustineuriahJOSEN [address], [place], [place], [address] [place] [address] , [place] - [facility] 3 11:08:42 Paresthesi a of upper limb 00130523 Active 2022 Mohamud Joyce, [facility] [address], [place], [place], [address] [place] [address] , [place] - [facility] 3 09:44:29 Swelling of left upper limb [id number] 9109 Active 2022 Mohamud Felipeing, [facility] [address], [place], [place], [address] [place] [address] , [place] - [facility] 3 09:46:35 Problem Notes None recorded. Procedures Surgical History Date Name Laterality Status Provider Name and Address Organization Details Recorded Time 06/25/19 23 Skin Tag Removal, Up to 15 Lesions completed Renanmanasashley GuardadoANIBAL [address], [place], [place], [address] [place] [address], [place] - [facility] 06/25/2022 16:51:50 04/28/20 22 Skin Tag Removal, Up to 15 Lesions completed Renanabdulkadir augustineuriahANIBAL [address], [place], [place], [address] [place] [address], [place] - [facility] 04/28/2022 18:31:27 Tonsillectomy completed Aysha Stears [place] - [facility] 08/14/2022 09:29:19 Hernia Repair completed Aysha Stears [place] - [facility] 08/14/2022 09:29:31 Back Surgery completed Aysha Stears [place] - [facility] 08/14/2022 09:29:39 Cholecystectomy, laparoscopic completed Aysha Stears [place] - [facility] 08/14/2022 09:29:47 Colonoscopy completed Aysha Stears [place] - [facility] 08/14/2022 09:30:15 Imaging Results None recorded. Procedure Notes None recorded. Medical Equipment None Reported. Allergies Allergen ID Allergen Name Allergen Category Reaction Reaction Severity Criticality Documentation Date Start Date Code Code System Note Provider Name and Address Organization Details Recorded Time 575287 phenobarb ital medicatio n Not available Not available high 04/28/2022 8134 RxNorm Shelby Connors null, [place] - [facility] 2 17:01:57 528013 Levaquin medicatio n other Not available [facility] 04/28/2022 27026 2 RxNorm Shelby Connors null, [place] - [facility] 2 17:02:33 132199 shellfish derived food,medi cation Not available Not available unabletoasse 11/02/2022 35167 UNK Irais Guardado, [facility] [address], [place], [address], [place] - [facility] 3 14:43:06 Medications Name Sig Start Date Stop Date Status Note LastModified by Organization Details LastModified Time ibuprofen terbinafine fluconazole in dmso 3% 3% 2% solution # Apply to nail beds twice daily active Not Available Not Available No t Available blood pressu solution kit active Not Available Not Available Not Available azithromyci n 250 mg tablet TAKE 2 TABLETS (500 MG) BY ORAL ROUTE ONCE DAILY FOR 1 DAY THEN 1 TABLET (250 MG) BY ORAL ROUTE ONCE DAILY FOR 4 DAYS 07/10 completed Not Available Not Available Not Available [...] BY MOUTH TWICE DAILY FOR 10 DAYS 07/10 completed Not Available Not Available Not Available clobetasol 0.05 % topical cream APPLY CREAM TOPICALLY TWICE DAILY TO RASH FOR UP TO 2 WEEKS/Wed NEEDED OR UNTIL RESOLVED active Not Available Not Available No t Available sulfamethox azole 800 mg-trimetho prim 160 mg tablet TAKE 1 TABLET BY MOUTH EVERY 12 HOURS 07/10 completed Not Available Not Available Not Available amitriptyli ne 50 mg tablet 1 tablet daily 2024 active Not Available Not Available Not Avai lable triamcinolo ne acetonide 0.1 % topical cream 12/10 completed Not Available Not Available Not Available amoxicillin 875 mg tablet TAKE 1 TABLET BY MOUTH TWICE DAILY FOR 10 DAYS 04/28 completed Not Available Not Available Not Available nifedipine ER 60 mg tablet,exte nded release 24 hr TAKE 1 TABLET BY MOUTH DAILY 07/10 completed Not Available Not Available Not Available imiquimod 5 % topical cream packet 04/28 completed Not Available Not Available Not Available benzonatate 100 mg capsule TAKE 1 CAPSULE BY MOUTH THREE TIMES DAILY NEEDED FOR COUGH FOR 7 DAYS 07/10 completed Not Available Not Available Not Available hydrocodone 7.5 mg-acetamin ophen 325 mg tablet TAKE 1 TABLET BY MOUTH EVERY 6 HOURS IF NEEDED 07/10 completed Not Available Not Available Not Available cephalexin 500 mg capsule TAKE 1 CAPSULE BY MOUTH TWICE DAILY FOR 10 DAYS 07/10 completed Not Available Not Available Not Available oseltamivir 75 mg capsule TAKE 1 CAPSULE BY MOUTH TWICE DAILY FOR 5 DAYS 07/10 completed Not Available Not Available Not Available lansoprazol e 15 mg capsule,del ayed release 04/28 completed Not Available Not Available Not Available gabapentin 300 mg capsule TAKE 1 CAPSULE BY MOUTH THREE TIMES DAILY active Not Available Not Available No t Available dexamethaso ne sodium phosphate 4 mg/mL injection solution inject 1 ml IM once 05/25 completed Not Available Not Available Not Available epinephrine 0.3 mg/0.3 mL injection, auto-inject or Take 1 auto as needed by injection route. active Not Available Not Available No t Available fluocinonid e 0.05 % topical solution active Not Available Not Available Not Available methylpredn isolone 4 mg tablets in a dose pack 07/10 completed Not Available Not Available Not Available fluticasone propionate 50 mcg/actuati on nasal spray,suspe nsion [place] 1 spray every day by intranasa l route. 07/10 completed Not Available Not Available Not Available loratadine 10 mg tablet TAKE 1 TABLET BY MOUTH DAILY FOR ALLERGIES 2024 active Not Available Not Available Not Avai lable sildenafil (pulmonary hypertensio n) 20 mg tablet TAKE 1-TABLET BY MOUTH, 30 mins to 4 hours before sexual activity 2022 active Not Available Not Available Not Avai lable aspirin 81mg daily 05/25 completed Not Available Not Available Not Available hydrochloro thiazide 12.5 mg tablet Take 1 tablet every day by oral route for 90 days. active Not Available Not Available No t Available diclofenac 1 % topical gel APPLY 2 GRAMS TOPICALLY TO THE AFFECTED AREA FOUR TIMES DAILY active Not Available Not Available No t Available naftifine 2 % topical cream 07/10 completed Not Available Not Available Not Available Wegovy 0.25 mg/0.5 mL subcutaneou s pen injector Inject 0.25 mg every week by subcutane ous route. 07/10 completed Not Available Not Available Not Available Zepbound 2.5 mg/0.5 mL subcutaneou s pen injector 07/10 completed Not Available Not Available Not Available Vitals Date Recorded Body weight Body temperature Heart rate Oxygen saturation Oxygen saturation in Arterial blood by Pulse oximetry Respiratory rate Systolic And Diastolic Provider Name and Address Organization Details Last Updated DateTime 5 240131. 42 g 98.1 [degF] 73 /min 97 % 97 % 18 /min 160/84 mm[Hg] Shelby Connors [place] - [facility] 5 14:02:11 Date Recorded Body height Body mass index (BMI) Body weight Heart rate Respiratory rate Oxygen saturation Oxygen saturation in Arterial blood by Pulse oximetry Body temperature Systolic And Diastolic Provider Name and Address Organization Details Last Updated DateTime 3 179.07 cm 37.1 kg/m2 833320. 2 g 88 /min 18 /min 98 % 98 % 97.6 [degF] 160/82 mm[Hg] Aysha Stears [place] - [facility] 3 09:24:07 Date Recorded Body height Provider Name an d Address Organization Details Last Updated DateTime 12/10/2022 179.07 cm Mohamud Joyce , [facility] [address], [place], [address], [place] - [facility] 12/10/2022 08:50:50 Date Recorded Body mass index (BMI) Body weight Body temperature Heart rate Oxygen saturation Oxygen saturation in Arterial blood by Pulse oximetry Respiratory rate Systolic And Diastolic Provider Name and Address Organization Details Last Updated DateTime 3 37 kg/m2 408399. 41 g 97.4 [degF] 84 /min 96 % 96 % 20 /min 138/80 mm[Hg] Shelby Connors [place] - [facility] 3 09:02:17 Date Recorded Body height Body mass index (BMI) Body weight Body temperature Heart rate Oxygen saturation Oxygen saturation in Arterial blood by Pulse oximetry Respiratory rate Systolic And Diastolic Provider Name and Address Organization Details Last Updated DateTime 3 179.07 cm 36.9 kg/m2 614327. 96 g 98.2 [degF] 74 /min 95 % 95 % 18 /min 158/88 mm[Hg] Shelby Connors [place] - [facility] 3 08:37:45 Social History Question Answer Notes LastModified by Organizat ion Details LastModified Time Tobacco Smoking Status Former Smoker Shelby Connors null, [place] - [facility] 04/28/2022 16:57:25 Do You Have An Advance Directive? No Information not available 04/28/2022 Are You Blind Or Do You Have Difficulty Seeing? No Information not available 06/25/2022 Is Blood Transfusion Acceptable In An Emergency? Yes Information not available 04/28/2022 What Is Your Level Of Caffeine Consumption? Moderate Information not available 04/28/2022 How Much Tobacco Do You Chew? None Information not available 04/28/2022 Are You Deaf Or Do You Have Serious Difficulty Hearing? No Information not available 04/28/2022 What Type Of Diet Are You Following? REGULAR Information not available 06/25/2022 Which Illicit Or Recreational Drugs Have You Used? None Information not available 04/28/2022 What Is The Highest Grade Or Level Of School You Have Completed Or The Highest Degree You Have Received? [id number] Information not available 04/28/2022 Have There Been Any Changes To Your Family Or Social Situation? No Information no t available 06/25/2022 What Is The Fluoride Status Of Your Home? Unknown Information not available 06/25/2022 When Did You Quit Smoking? 16+yearssince lastcigarette Information not available 04/28/2022 How Many Years Have You Used Illicit Or Recreational Drugs? 0 Information not available 04/28/2022 Do You Have A Medical Power Of Template Checker? No Information not available 06/25/2022 What Was The Date Of Your Most Recent Tobacco Screening? 07/10/2024 Information not available 07/10/2024 What Is Your Current Pack Years? 10-19packyear s Information not available 08/14/2022 Do You Use Protection During Sex? No Information not available 04/28/2022 Do You Use Protection Against STDs? No Information not available 04/28/2022 What Is Your Relationship Status? Information not available 04/28/2022 Do You Use Your Seat Belt Or Car Seat Routinely? Yes Information not available 04/28/2022 Are You Sexually Active? Yes Information not available 04/28/2022 Do You Have Smoke And Carbon Monoxide Detectors In Your Home? Yes Information not available 04/28/2022 At What Age Did You Start Smoking Tobacco? 14 Information not available 04/28/2022 Are You Passively Exposed To Smoke? No Information no t available 04/28/2022 Do You Use Sunscreen Routinely? Yes Information not available 04/28/2022 How Many Years Have You Smoked Tobacco? 11 Information not available 04/28/2022 Do You Have Difficulty Walking Or Climbing Stairs? No Information not available 06/25/2022 Which Type Of Protection Is Used? None Information not available 04/28/2022 Sex: Male Functional Status Question Answer Note LastModified by Organizat ion Details LastModified Time Do you or have you ever used smokeless tobacco? Never used smokeless tobacco Information not available 04/28/2022 Are you currently employed? Yes Information not available 04/28/2022 Do you have transportation difficulties? No Information not available 06/25/2022 Are you able to care for yourself? Yes Information n ot available 04/28/2022 Do you have difficulty dressing or bathing? No Information not available 06/25/2022 Do you or have you ever used e-cigarettes or vape? Never used electronic cigarettes Information not available 04/28/2022 What is your exercise level? Occasional Information not available 04/28/2022 Do you use any illicit or recreational drugs? No Information not available 08/14/2022 Do you or have you ever used any other forms of tobacco or nicotine? No Information not available 08/14/2022 What is your level of alcohol consumption? None Information not available 04/28/2022 Are you able to walk? YESWOREST Information not available 06/25/2022 Do you have difficulty doing errands alone? No Information not available 06/25/2022 What is your occupation? [employer] Information not available 04/28/2022 Mental Status Question Answer Note LastModified by Organizat ion Details LastModified Time Do you feel stressed (tense, restless, nervous, or anxious, or unable to sleep at night)? [id number] Information not available 04/28/2022 Do you have difficulty concentrating, remembering or making decisions? No Information no t available 06/25/2022 Family History Relationship Description Onset Age of this Age Resolved Age Notes LastModified by Organization Details LastModified Time Father No current problems or disability bstears Not available 06/25 15:52:49 Mother No current problems or disability bstears Not available 06/25 15:52:49 Medical History Condition Response Erectile Dysfunction Y Cancer Y Skin Problems Y Constipation Y Hepatitis Y Hernia Y Fracture Y Degenerative Disc Disease Y Seizures/Epilepsy Y Hypertension Y Immunizations Vaccine Type Date Status Note Provider Nam e and Address Organization Details Recorded Time influenza, unspecified formulation 02/14/2017 completed Aysha Stears null, [place] - [facility] 06/25/2022 15:52:26 COVID-19, mRNA, LNP-S, PF, 100 mcg/0.5mL dose or 50 mcg/0.25mL dose 04/30/2021 completed Aysha Stears null, [place] - [facility] 06/25/2022 15:52:26 COVID-19, mRNA, LNP-S, PF, 100 mcg/0.5mL dose or 50 mcg/0.25mL dose 03/26/2021 completed Aysha Stears null, [place] - [facility] 06/25/2022 15:52:26 influenza, unspecified formulation 03/10/2017 completed Aysha Stears null, [place] - [facility] 06/25/2022 15:52:26 Past Encounters Encounter ID Performer Location Encounter Start Date Encounter Closed Date Diagnosis/Indication Diagnosis SNOMED-CT Code Diagnosis ICD10 Code Diagnosis Note [id number] Irais Lambdaphne [address] [address] 04/28/2022 16:27:32 04/28/2022 17:54:16 Seasonal allergic rhinitis 396119145 J30.2 [id number] Renanabdulkadir Guardado [address] [address] 06/25/2022 15:34:00 06/25/2022 16:40:52 Erectile dysfunction 446847150 F52.21 cancelled sildenafil 25mg due to bush, called spoke with Multiple a xillary skin tags 517472755 D23.5 keep area clean and drywatch for s/s of infection [id number] [facility] [address] 08/14/2022 09:15:10 08/14/2022 10:42:21 Hypertensive disorder 58389045 I10 Pain of le ft elbow joint 2056841280 1898281 M25.522 elevatedty lenol or motrin for painice as neededif pain continues will refer to pt and xray elbow Screening for malignant neoplasm of prostate 008982214 Z12.5 Screening for malignant neoplasm of colon 535154242 Z12.11 [id number] Mohamud Joyce [address] [address] 12/10/2022 08:46:26 12/10/2022 10:06:59 Body mass index 30+ - obesity 583293668 Z68.37 Obesity 646749377 E66.9 Paresthesi a of upper limb 92672138 R20.2 [id number] [facility] [address] [address] 05/25/2023 08:17:14 05/25/2023 09:11:57 Erectile dysfunction 781518052 F52.21 Body mass index 30+ - obesity 844566190 Z68.36 Obesity 995550401 E66.9 Low back pain 222747675 M54.50 mri due to leg and heel paintestic le pain with no cause pt reports happened with other back issues2 prior back surgeries [id number] Irais Guardado APRN [address] [address] 07/10/2024 13:43:54 07/10/2024 14:50:42 Hypertensive disorder 79144320 I10 will order labs when surgery preop labsadd lipids and psa Depressive disorder 3548 9007 F32.A Seasonal a llergic rhinitis 099663645 J30.2 [id number] Irais Guardado APRN [address] [address] 08/22/2024 13:17:33 08/22/2024 13:53:40 Hypertensive disorder 21350192 I10 Health Concerns Section Related Observation LastModified by Organization Detai ls LastModified Time None Recorded Concern Status LastModified by Organization Details LastModified Time None Recorded Advance Directives Directive N: Payers Insurance Date Sequence Insurance Name Policy Number Policy Ross Covered Member ID Ross Member ID Guarantor Name 09/27/2024 1 [facility] [id number] Aydee Hernadez [id number] Aydee Hernadez 07/10/[address] [facility] [id number] Aydee Hernadez [id number] Aydee Hernadez Notes Date Note Type Note Provider Name and Address Organization Details Recorded Time 08/14/2022 text/html Aydee is a 61 ye ar old male who presents to the office today with concerns ofleft elbow pain- states pain is at left forearm up into left shoulder/neck -he fell 2 weeks ago and caught himself on left arm/elbow against the shop wall. pt states the fall was not a hard fall,just hit the same area that was already hurtingwants to discuss having cologuard and psa level Irais Guardado APRN [address], [place], [address], [place] - [facility] 08/14/2022 14:05:58 12/10/2022 text/html Left arm paresthesia- Onset was 10 months ago. States he felt a pop in his upper thoracic/lower cervical spine region when he lifted a heavy rock. States symptoms have persisted intermittently ever since.- Symptoms described as burning pain, numbness, paresthesia of left upper extremity- Occurs intermittently, approximately 2-3 times a month- Severity is mild to moderate- Aggravating factors: rigorous activity with upper body, sleeping on left side- Alleviating factors: rest- Associated ROS: mild left arm/hand weakness, mild swelling of left arm/hand- Negative ROS: no neck pain, muscle spasms, loss of movement of arm, discoloration of skin- Associated medical history: herniated disc of lumbar spine- Associated social history: none- Associated sexual history: none- Associated family history: none Mohamud Joyce, [facility] [address], [place], [address], [facility] - [facility] 12/10/2022 12:52:55 05/25/2023 text/html Back PainReporte d bypatient.Location:p ain is not radiating Severity:improving Associated Symptoms:no fever; no weak limbs; no numbness of the legs/feet; no tingling; no incontinence; no shortness of breath; no unintentional weight loss; no chills; no night sweats; no gait instability; no bowel/bladder symptoms; no recent increase in stress Prior Imaging:MRI; X-ray 62 yr old male presents with back pain that affects his left leg, testicles, and left heal. pt states before his last back surgery he has same symptoms. states he has seen urology and they state they do not see any reason for testicle pain.He also wants his wegovy sent in to [facility]- he tried to get it through cardiology and [facility] not [facility].pt states he also needs his sildenafil refilled for ed. Aysha [place]kew, [place] - [facility] 05/28/2023 10:52:42 07/10/2024 text/html 63 yr old presen ts to follow up on chronic conditions and medication refills. pt states he is doing well, just recovering from upper resp infection.pt has planed back surgery meets with surgeon on wednesday. Irais Guardado, [facility] [address], [place], [address], [facility] - [facility] 07/10/2024 14:51:50 08/22/2024 text/html 63 yr old male presents for lab work. Shelby [place]w, [place] - [facility] 08/22/2024 14:04:35
--- NOTE | 2024-12-14 07:00 | NM_ITS ---
APPROVED REPORT Exam: Nuclear Stress Test Indication: cp..soa Patient Location: Outpatient Stress Tech: Rosie SANTOS Tech:AMADOU Weldon RT(R)(N) Ht: 5 ft 11 in Wt: 250 lbs HR: 56 bpm BP: 128/80 mmHg BSA: 2.32 m2 TID: 1.28 BMI: 34.8 History: cp..soa Procedure: Patient received 0.4 mg of intravenous Lexiscan, resting heart rate 56 bpm, resting blood pressure 128/80 mmHg, with Lexiscan maximum heart rate achieved was 62 bpm which is 85 % of the maximum predicted heart rate and blood pressure was 137/78 mmHg. With Lexiscan, patient denied any complaint of chest pain. Cardiac Stress and Resting SPECT Images: Cardiac Stress and Resting SPECT images were obtained using technetium 99m Myoview 29.8 mCi stress and 10.61 mCi at rest. Resting and stress imaging in supine and prone positions demonstrate no evidence of fixed or reversible perfusion defects. There is increase in transient ischemic dilatation ratio (TID 1.28), which may be suggestive of possible multivessel disease or balanced ischemia. Gated imaging demonstrates normal global and regional LV systolic function. LVEF is calculated at 57%. Conclusion: No evidence of fixed or reversible perfusion defects. There is increase in transient ischemic dilatation ratio (TID 1.28), which may be suggestive of possible multivessel disease or balanced ischemia. Gated imaging demonstrates normal global and regional LV systolic function. LVEF is calculated at 57%. Electronically signed by : Debo Leonard MD 12/16/2024 15:29:30
[2024-12-14] MEDS: SODIUM CHLORIDE 0.9% 10ML SYR (RAD ONLY) 10 ML IV ×2 (09:56)
[2024-12-14] MEDS: ISOTOPE MYOVIEW (PER STUDY) 1 DOSE IV (09:56)
== END 2024-12-14 23:59 | disposition home or self-care (01) ==
LOC: RAD 06:47
PROVIDERS: PCP Nurse Practitioner Family; Visit Provider Physician Assistant
DX: I15.8 Other secondary hypertension (principal); R06.09 Other forms of dyspnea
CPT/HCPCS: 78452; 93016; 93017; 93018; A9502; J2785

== ENCOUNTER 2025-01-09 08:20 | Day surgery (SDC) | payer MEDICARE, SELFPAY ==
[2025-01-09] VITALS (11 sets, daily range): BP systolic 94–147; BP diastolic 45–85; PULSE 45–59; RESP 17–21; TEMP 36.6; O2SAT 93–99; BMI 35.8
--- NOTE | 2025-01-09 07:05 | IR_ITS ---
APPROVED REPORT Patient Location: Outpatient Cel[facility] Tier: Mohamud Klein, RT (R) PROCEDURES Left heart catheterization Left ventriculogram Selective coronary angiogram INDICATION Abnormal Myoview, Preoperative evaluation Informed consent was obtained prior to the procedure. COMPLICATIONS NONE Estimated Blood Loss: LESS THAN 10 ML TECHNIQUE One percent lidocaine used to anesthetize the right anterior aspect of the wrist. The right radial artery was accessed via the Seldinger technique. A 6 Stateless sheath was placed in the right radial artery. 2.5 mg of Verapamil, 800 mcg of nitroglycerin, 1mg Lidocaine and 5000 U Heparin were given through the arterial sheath. The JL3 catheter was also used to perform left heart catheterization, left ventriculogram and selective coronary angiogram. At the end of the procedure the sheath was removed good hemostasis was achieved using Traclet band, patient was transferred to the postop holding area in stable condition. ANGIOGRAPHIC RESULTS The left main artery Normal The left anterior descending artery Approximately normal with mid vessel 20% stenosis The circumflex artery Normal The right coronary artery Large dominant normal The [place] ventriculogram reveals Normal 65% The left ventricular end-diastolic pressure 15 mmHg IMPRESSION Mild nonocclusive coronary artery disease Normal ejection fraction Normal LVEDP PLAN 1. Medical management for mild coronary disease 2. Patient is a low and acceptable risk to proceed with the surgery Electronically signed by : Mt Gamez MD 01/09/2025 12:10:26
[2025-01-09 08:47] LABS: Hematocrit 41.9 % (42.0-52.0); Hemoglobin 14.8 g/dL (14.1-18.0); Immature Granulocytes % 0.2 %; Mean Corpuscular HGB Conc 35.3 g/dL (31.8-35.4); Mean Corpuscular Hemoglobin 31.2 pg (27.0-31.2); Mean Corpuscular Volume 88.2 fl (80-94); Nucleated Red Blood Cells % 0 %; Platelet Count 215 K/mm3 (142-424); Red Blood Count 4.75 M/mm3 (4.60-6.20); Red Cell Distribution Width-SD 38.0 fL; White Blood Count 6.2 K/mm3 (4.8-10.8)
[2025-01-09 08:56] LABS: Anion Gap 8.8 mEq/L (5-15); Blood Urea Nitrogen 16 mg/dl (9-20); Calcium 8.7 mg/dl (8.4-10.2); Carbon Dioxide 28 mmol/L (22.0-30.0); Chloride 104 mmol/L (98-107); Creatinine Clearance Estimated 121 mL/min (50-200); Creatinine,Serum 0.80 mg/dl (0.66-1.25); Estimated Glomerular Filt Rate 97 ml/min (>60); GFR (African American) 117 ML/MIN (>60); Glucose 92 mg/dl (74-100); Potassium 3.8 mmoL/L (3.5-5.1); Sodium 137 mmol/L (136-145)
[2025-01-09] MEDS: MIDAZOLAM HCL 1MG/ML 5ML VIAL 1 MG IV (11:29)
[2025-01-09] MEDS: FENTANYL 100MCG/2ML VIAL 50 MCG IV (11:29)
[2025-01-09] MEDS: VERAPAMIL 2.5MG/ML 2ML VIAL 2.5 MG IV (11:29)
[2025-01-09] MEDS: HEPARIN 1,000 UNITS/500ML NS (CATH LAB) 3000 UNIT IV (11:29)
[2025-01-09] MEDS: HEPARIN 1,000 UNITS/ML 10ML VIAL (CATH LAB) 5000 UNIT IV (11:29)
[2025-01-09] MEDS: LIDOCAINE 1% 10ML MDV 10 ML IJ (11:29)
[2025-01-09] MEDS: NITROGLYCERIN 800MCG/8ML SYR (CATH LAB) 800 MCG IA (11:29)
[2025-01-09] MEDS: 0.9 % SODIUM CHLORIDE 500 ML 25 ML IV (11:29)
== END 2025-01-09 14:30 | disposition home or self-care (01) ==
PROVIDERS: PCP Nurse Practitioner Family; Visit Provider Internal Medicine
PROC: 4A023N7 Measurement of Cardiac Sampling and Pressure, Left Heart, Percutaneous Approach (ICD-10-PCS; CPT 93452; principal; 2025-01-09 08:45)
DX: Z01.810 Encounter for preprocedural cardiovascular examination (principal); I25.118 Atherosclerotic heart disease of native coronary artery with other forms of angina pectoris; R94.39 Abnormal result of other cardiovascular function study; I10 Essential (primary) hypertension; E66.9 Obesity, unspecified; Z68.35 Body mass index [BMI] 35.0-35.9, adult; Z79.82 Long term (current) use of aspirin; Z79.899 Other long term (current) drug therapy; Z88.1 Allergy status to other antibiotic agents; Z88.8 Allergy status to other drugs, medicaments and biological substances
CPT/HCPCS: 80048; 85025; 93458; 99152; C1725; C1769; J1200; J1644; J3010; J7040

== ENCOUNTER 2025-04-17 09:43 | Outpatient (RCR) | payer MEDICARE, SELFPAY | END 2025-04-17 23:59 | disposition home or self-care (01) | LOC: OT 09:43 | PROVIDERS: PCP Nurse Practitioner Family; Visit Provider Nurse Practitioner Family | DX: M25.512 Pain in left shoulder (principal); M54.2 Cervicalgia; G89.29 Other chronic pain | CPT/HCPCS: 97166 ==

== ENCOUNTER 2025-05-28 16:00 | Outpatient (RCR) | payer MEDICARE, SELFPAY | END 2025-05-28 23:59 | disposition home or self-care (01) | LOC: PT 16:00 | PROVIDERS: PCP Nurse Practitioner Family; Visit Provider Nurse Practitioner Family | DX: M54.2 Cervicalgia (principal) | CPT/HCPCS: 97014; 97110; 97140; 97162; G0283 ==